=== PATIENT | female | born 1965 | race Caucasian/White ===

== ENCOUNTER → 2019-01-22 | Outpatient (CLI) | payer MEDICARE ==
--- NOTE | 2019-01-22 14:10 | Diagnostic Imaging Report ---
INDICATION: Left wrist pain. COMPARISON: None. FINDINGS: Three views of the left wrist demonstrate no acute fracture or dislocation. There are no focal osseous lesions. No avascular necrosis is seen. The visualized soft tissue structures are unremarkable. The pronator fat pad is not displaced. There are no radio opaque foreign bodies. IMPRESSION: 1. No acute fracture or dislocation in the left wrist. Dictated by: Dictated on workstation # [id number]
== END ==
LOC: RAD FS 13:37
PROVIDERS: ATTEND Physician Assistant
DX: M25.532 Pain in left wrist (principal)
CPT/HCPCS: 73110

== ENCOUNTER → 2019-11-03 | Outpatient (CLI) | payer MEDICARE ==
--- NOTE | 2019-11-03 11:09 | Diagnostic Imaging Report ---
INDICATION: COPD. FINDINGS: The lungs are clear. The heart and vessels are normal. No failure, effusion, or pneumothorax. IMPRESSION: Negative. Dictated by: Dictated on workstation # [id number]
[2019-11-03 11:32] LABS: ALANINE AMINOTRANSFERASE 17 U/L (0-55); ALBUMIN 4.3 GM/DL (3.2-4.5); ALKALINE PHOSPHATASE 85 U/L (40-136); BILIRUBIN,TOTAL 0.3 MG/DL (0.1-1.0); BUN/CREATININE RATIO 26; CALCIUM 9.9 MG/DL (8.5-10.1); CARBON DIOXIDE 26 MMOL/L (21-32); CHLORIDE 104 MMOL/L (98-107); GFR ESTIMATED > 60; GLUCOSE 96 MG/DL (70-105); POTASSIUM 4.8 MMOL/L (3.6-5.0); SODIUM 140 MMOL/L (135-145); TOTAL PROTEIN 7.6 GM/DL (6.4-8.2)
== END ==
LOC: RAD FS 10:45
PROVIDERS: ATTEND Nurse Practitioner
DX: J44.9 Chronic obstructive pulmonary disease, unspecified (principal); F41.1 Generalized anxiety disorder; E03.9 Hypothyroidism, unspecified
CPT/HCPCS: 36415; 71046; 80053; 84443; 85379

== ENCOUNTER → 2020-02-23 | Outpatient (CLI) | payer MEDICARE ==
--- NOTE | 2020-02-23 13:47 | Diagnostic Imaging Report ---
INDICATION: Atherosclerosis, claudication. FINDINGS: The right ankle-brachial index is 0.96 and the left 0.83. IMPRESSION: Mildly diminished greater left ankle brachial indices. In light of this abnormal screening study and the provided history of claudication, consider formal bilateral lower extremity arterial Dopplers as further evaluation to see if a focal stenosis is present at any level. Dictated by: Dictated on workstation # [id number]
== END ==
LOC: RAD 12:47
PROVIDERS: ATTEND Nurse Practitioner
DX: M79.604 Pain in right leg (principal); M79.605 Pain in left leg
CPT/HCPCS: 93922

== ENCOUNTER → 2021-02-07 | Outpatient (CLI) | payer MEDICARE ==
--- NOTE | 2021-02-07 14:13 | Diagnostic Imaging Report ---
EXAMINATION: CT Chest without contrast (lung screening). TECHNIQUE: Multiple contiguous axial images were obtained through the chest without the use of intravenous contrast according to lung cancer screening protocol. All CT scans use one or more of the following dose optimizing techniques: automated exposure control, MA and/or KvP adjustment based on a patient size and exam type, or iterative reconstruction. HISTORY: 96-avmk-ipyh history of smoking. COMPARISON: None available. FINDINGS: Thyroid: The thyroid is normal. Mediastinum: Heart size is normal without significant pericardial effusion. Calcifications of the aorta and coronary vessels. Thoracic aorta is normal in caliber. No suspicious lymphadenopathy. Lungs and airways: There are background emphysematous changes of the lungs. There are mild groundglass opacities within the medial upper lobes. No pleural effusion or pneumothorax. There are scattered areas of linear atelectasis or scarring. There is atelectasis within the lung bases. There are a few small scattered calcified granulomas. No suspicious pulmonary nodule. The airways are normal. Upper abdomen: The subphrenic structures are normal. Musculoskeletal: No suspicious osseous lesion or compression fracture. IMPRESSION: 1. No suspicious pulmonary nodules. Recommend continued annual low-dose CT screening. 2. COPD. LUNG-RADS CATEGORY: 1 MODIFIER: S Dictated by: Dictated on workstation # [id number]
--- NOTE | 2021-02-07 15:50 | Diagnostic Imaging Report ---
INDICATION: Postmenopausal screening. COMPARISON: None. FINDINGS: AP Spine L1-L4: [BMD (g/cm2): na] [T-Score: na] [Z-Score: na] [BMD Previous: na] [BMD % Change: na] LT Hip Neck: [BMD (g/cm2): 0.908] [T-Score: -0.9] [Z-Score: -0.1] LT Hip Total: [BMD (g/cm2):0.988] [T-Score:-0.2] [Z-Score: 0.4] [BMD Previous: na] [BMD % Change: na] RT Hip Neck: [BMD (g/cm2):0.821] [T-Score:-1.6] [Z-Score:-0.7] RT Hip Total: [BMD (g/cm2):0.947] [T-score:-0.5] [Z-Score:0.0] [BMD Previous:na] [BMD % Change:na] *Indicates significant change from prior examination based on 95% confidence level. World Health Organization criteria for BMD interpretation classify patients as Normal (T-score at or above -1.0), Osteopenic (T-score between -1.0 and -2.5) or Osteoporotic (T-score at or below -2.5). LIMITATIONS AND MODIFICATION: None. FRACTURE RISK (FRAX SCORE): The ten year probability of (%): Major Osteoporotic Fracture: [7.3] Hip Fracture: [1.0] IMPRESSION: 1. Osteopenia (Low bone mass). 2. Baseline examination. 3. See below National Osteoporosis Foundation guidelines on when to potentially initiate pharmacologic therapy. Based on the National Osteoporosis Foundation Guidelines, pharmacologic treatment should be initiated in any of the following, unless clinical conditions suggest otherwise: * Any patient with prior fragility fracture of the hip or vertebrae. A spine fracture indicates 5X risk for subsequent spine fracture and 2X risk for subsequent hip fracture. * Osteoporosis (T-score <-2.5). * Postmenopausal women and men age 50 and older with low bone mass/osteopenia (T-score between -1.0 and -2.5) by DXA and 10-year major osteoporotic fracture greater than 20% or a 10-year probability of hip fracture greater than 3%. These fracture risks are supplied above in the FRAX score, if applicable. * Clinician judgement and/or patient preferences may indicate treatment for people with 10-year fracture probabilities above or below these levels. Dictated by: Dictated on workstation # [id number]
== END ==
LOC: RAD 13:00
PROVIDERS: ATTEND Nurse Practitioner
DX: Z00.00 Encounter for general adult medical examination without abnormal findings (principal); J44.9 Chronic obstructive pulmonary disease, unspecified; M85.80 Other specified disorders of bone density and structure, unspecified site; Z78.0 Asymptomatic menopausal state; F17.210 Nicotine dependence, cigarettes, uncomplicated
CPT/HCPCS: 71271; 77080

== ENCOUNTER 2021-08-30 16:56 | Emergency (ER) | payer MEDICARE ==
[~2021-08-30] VITALS: Ht 162 cm; Wt 72.0 kg
--- NOTE | 2021-08-30 17:20 | ED Cardiac General ---
History of Present Illness General Chief Complaint: Chest Pain Stated Complaint: L ARM PAIN Nursing Triage Note: PT AMB TO ROOM 6 PT CO OF L HAND AND ARM PAIN FOR 3-4 DAYS SENT TO ED BY DR VALVERDE'S OFFICE FOR POSSIBLE HEART ATTACK. PT STATES LAST IL WAS SIMILAR TO THIS. DENIES SOA OR C/P AT THIS X Source: patient Exam Limitations: no limitations History of Present Illness Date Seen by Provider: Aug 30, 2021 Time Seen by Provider: 16:48 Initial Comments 56-year-old female with past medical history of hypertension, hyperlipidemia, hypothyroidism, COPD, CAD with stenting on Plavix coming in due to left hand and forearm pain. She says it has been constant and ongoing for 4 days, and is a throbbing pain. Nothing seems to make it better or worse. She says the last time this happened a couple years ago she eventually ended up with a stent. She says initially she was told she had arthritis. She went to the CT scanner, was given IV contrast, and afterwards could not breathe and her blood pressure went down. She says they did a cath shortly after that and she says that was when she had her heart attack. She says she has not been feeling lightheaded like that time, not feeling short of breath, vitals have been normal for her, and she is not having any chest pain. Denies any previous history of blood clots, leg swelling, recent surgery, recent travel, or hormonal use. ASA po OCCUPATIONAL HEALTH RN: No Allergies and Home Medications Allergies Coded Allergies: Penicillins (Verified Allergy, Unknown, 08/30/21) Sulfa (Sulfonamide Antibiotics) (Verified Allergy, Unknown, 08/30/21) Patient Home Medication List Home Medication List Reviewed: Yes Review of Systems Review of Systems Constitutional: No chills, No fever EENTM: No Blurred Vision Respiratory: Denies Cough, Denies Shortness of Air Cardiovascular: Denies Chest Pain, Denies Irregular Heart Rate, Denies Light headedness, Denies Palpitations, Denies Syncope Gastrointestinal: Denies Abdominal Pain, Denies Diarrhea, Denies Nausea, Denies Vomiting Genitourinary: Denies Burning Musculoskeletal: joint pain Skin: no symptoms reported Psychiatric/Neurological: No Symptoms Reported Endocrine: No Symptoms Reported Hematologic/Lymphatic: No Symptoms Reported All Other Systems Reviewed Negative Unless Noted: Yes Past Klrlwqx-Reujsj-Vxfzhu Hx Patient Social History Tobacco Use?: Yes Tobacco type used: Cigarettes Smoking Status: Current Everyday Smoker Substance use?: No Alcohol Use?: No Pt feels they are or have been: No Immunizations Up To Date Second COVID19 Vaccination Amilcar: DALE COVID19 Vaccine Yarn Skeins Examiner: MODERNTello Past Medical History Surgeries: Yes Orthopedic (Back surgery) Physical Exam Vital Signs Vital Signs - First Documented 08/30/21 16:57 Temp 36.2 Pulse 60 Resp 18 B/P (MAP) 144/71 (95) Pulse Ox 96 Capillary Refill : Less Than 3 Seconds Height, Weight, BMI Height: '" Weight: lbs. oz. kg; 27.00 BMI Method: General Appearance: No Apparent Distress, WD/WN HEENT: PERRL/EOMI, Normal ENT Inspection, Pharynx Normal Neck: Full Range of Motion, Normal Inspection, Non Tender, Supple Respiratory: Chest Non Tender, Lungs Clear, Normal Breath Sounds, No Accessory Muscle Use Cardiovascular: Regular Rate, Rhythm, No Edema, Normal Peripheral Pulses Gastrointestinal: Normal Bowel Sounds, Non Tender, Soft; No Distended, No Guarding Extremity: Normal Capillary Refill, Normal Inspection, Normal Range of Motion, No Calf Tenderness, No Pedal Edema, Other (Tender to palpation along the left forearm that recreates her pain without any swelling or redness, normal distal pulses and sensation, normal testing of the radial/median/ulnar nerves) Neurologic/Psychiatric: Alert, No Motor/Sensory Deficits, Normal Mood/Affect Skin: Normal Color, Warm/Dry Lymphatic: No Adenopathy Progress/Results/Core Measures Results/Orders Lab Results Laboratory Tests Test 08/30/21 17:24 Range/Units White Blood Count 10.5 4.3-11.0 10^3/uL Red Blood Count 5.04 3.80-5.11 10^6/uL Hemoglobin 15.5 11.5-16.0 g/dL Hematocrit 45 35-52 % Mean Corpuscular Volume 89 80-99 fL Mean Corpuscular Hemoglobin 31 25-34 pg Mean Corpuscular Hemoglobin Concent 35 32-36 g/dL Red Cell Distribution Width 13.6 10.0-14.5 % Platelet Count 283 130-400 10^3/uL Mean Platelet Volume 9.1 9.0-12.2 fL Immature Granulocyte % (Auto) 0 % Neutrophils (%) (Auto) 58 42-75 % Lymphocytes (%) (Auto) 35 12-44 % Monocytes (%) (Auto) 5 0-12 % Eosinophils (%) (Auto) 1 0-10 % Basophils (%) (Auto) 1 0-10 % Neutrophils # (Auto) 6.0 1.8-7.8 10^3/uL Lymphocytes # (Auto) 3.7 1.0-4.0 10^3/uL Monocytes # (Auto) 0.6 0.0-1.0 10^3/uL Eosinophils # (Auto) 0.1 0.0-0.3 10^3/uL Basophils # (Auto) 0.1 0.0-0.1 10^3/uL Immature Granulocyte # (Auto) 0.0 0.0-0.1 10^3/uL Sodium Level 137 135-145 MMOL/L Potassium Level 3.9 3.6-5.0 MMOL/L Chloride Level 102 98-107 MMOL/L Carbon Dioxide Level 25 21-32 MMOL/L Anion Gap 10 5-14 MMOL/L Blood Urea Nitrogen 9 7-18 MG/DL Creatinine 0.83 0.60-1.30 MG/DL Estimat Glomerular Filtration Rate 71 BUN/Creatinine Ratio 11 Glucose Level 84 70-105 MG/DL Calcium Level 9.3 8.5-10.1 MG/DL Corrected Calcium 9.1 8.5-10.1 MG/DL Total Bilirubin 0.3 0.1-1.0 MG/DL Aspartate Amino Transf (AST/SGOT) 19 5-34 U/L Alanine Aminotransferase (ALT/SGPT) 15 0-55 U/L Alkaline Phosphatase 80 40-136 U/L Troponin I < 0.028 <0.028 NG/ML Total Protein 7.7 6.4-8.2 GM/DL Albumin 4.2 3.2-4.5 GM/DL My Orders Orders - ALEISHA DERAS MD Cbc With Automated Diff (08/30/21 17:22) Chest 1 View, Ap/Pa Only (08/30/21 17:22) Ekg Tracing (08/30/21 17:22) Comprehensive Metabolic Panel (08/30/21 17:22) O2 (08/30/21 17:22) Monitor-Rhythm Ecg Trace Only (08/30/21 17:22) Ed Iv/Invasive Line Start (08/30/21 17:22) Troponin I (08/30/21 17:22) Aspirin Chewable Tablet (Baby Aspirin Ch (08/30/21 17:30) Aspirin Chewable Tablet (Baby Aspirin Ch (08/30/21 17:47) Medications Given in ED Current Medications Medications Dose Ordered Sig/Carlos Route Start Time Stop Time Status Last Admin Dose Admin Aspirin 324 mg ONCE ONCE PO 08/30/21 17:30 08/30/21 17:31 DC 08/30/21 17:46 324 MG Vital Signs/I&O 08/30/21 16:57 Temp 36.2 Pulse 60 Resp 18 B/P (MAP) 144/71 (95) Pulse Ox 96 Blood Pressure Mean: 95 Progress Progress Note : Progress Note 56-year-old female with above history coming in due to left forearm pain. ABCs were intact and vitals were stable on presentation. On physical exam she is tender to palpation in her left forearm particularly more on the volar side which she says recreates her pain exactly. Pain is all distal to the elbow. She would be an unusual exam if it was cardiac in nature, however she is adamant that she had similar symptoms 2 years ago. EKG ordered without any ST changes. We will go ahead and get labs including a single troponin. If she has had constant pain for 4 days, a single troponin should be sufficient if this was indeed ACS. Her story of her prior IL sounds more like anaphylaxis to IV contrast, as she says she became hypotensive immediately after the CT scan. It is difficult to fully know however, because this was all at a different hospital. Labs were significant for an undetectable troponin, and normal basic labs otherwise. Chest x-ray is clear. EKG without ischemic changes. Overall this truly seems musculoskeletal in nature to me. If she is truly concerned I do recommend she follow back up with her lemon grower within the next couple of days. She was then discharged home in stable condition with strict return precautions. Initial ECG Impression Date: Aug 30, 2021 Initial ECG Impression Time: 17:01 Initial ECG Rate: 57 Initial ECG Rhythm: Normal Sinus Comment Narrow QRS, normal axis, no significant ST changes, T wave inversions in leads V1 and V2 which is nonspecific Diagnostic Imaging Diagonstic Imaging: Xray Plain Films/CT/US/NM/MRI: chest Comments [facility] [place], [place] NAME: NEGAR TINEO [facility] REC#: [id number] PT STATUS: REG ER : 1965 PHYSICIAN: ALEISHA DERAS MD ADMIT DATE: 08/30/21/ER Signed Date of Exam:08/30/21 CHEST 1 VIEW, AP/PA ONLY EXAMINATION: Chest 1 view HISTORY: Chest pain COMPARISON: None available. FINDINGS: The lungs are clear without edema or pneumonia. No pleural effusion or pneumothorax. Heart size is normal. IMPRESSION: 1. Clear lungs. Dictated by: Dictated on workstation # [id number] Dict: 08/30/211736 Trans: 08/30/211736 [facility] [id number] Interpreted by: MCKENZIE MCDONNELL MD Electronically signed by: MCKENZIE MCDONNELL MD 08/30/211736 Departure Impression Primary Impression: Forearm pain Qualified Codes: M79.632 - Pain in left forearm Disposition: HOME, SELF-CARE Condition: Stable Departure-Patient Inst. Decision time for Depature: 17:53 Referrals: [facility] ([place]P/Family) Primary Care Physician Patient Instructions: Angina (DC) Add. Discharge Instructions: Department for your left forearm pain. When I squeeze her forearm it did recreate your pain which points to more of a musculoskeletal cause of your pain. Fortunately, the markers in your blood were negative for any obvious heart attack. Your EKG also looks getting your chest x-ray is clear. I do recommend you follow-up with your lemon grower within the next couple of days, as you stated to me that you have not followed up for the past year or so. If you have any concerns or worsening of symptoms then please come back to the ER. ALEISHA DERAS MD Aug 30, 2021 17:20
[2021-08-30] MEDS ORDERED: ASPIRIN 81 MG CHEW (CHILDREN'S ASA) PO ONE (17:30)
--- NOTE | 2021-08-30 17:38 | Diagnostic Imaging Report ---
EXAMINATION: Chest 1 view HISTORY: Chest pain COMPARISON: None available. FINDINGS: The lungs are clear without edema or pneumonia. No pleural effusion or pneumothorax. Heart size is normal. IMPRESSION: 1. Clear lungs. Dictated by: Dictated on workstation # [id number]
[2021-08-30 17:44] LABS: ALBUMIN 4.2 GM/DL (3.2-4.5); BILIRUBIN,TOTAL 0.3 MG/DL (0.1-1.0); CALCIUM 9.3 MG/DL (8.5-10.1); CREATININE SERUM 0.83 MG/DL (0.60-1.30); POTASSIUM 3.9 MMOL/L (3.6-5.0); TOTAL PROTEIN 7.7 GM/DL (6.4-8.2)
[2021-08-30 17:45] LABS: BASOPHILS # (AUTO) 0.1 10^3/uL (0.0-0.1); BASOPHILS % (AUTO) 1 % (0-10); EOSINOPHILS # (AUTO) 0.1 10^3/uL (0.0-0.3); EOSINOPHILS % (AUTO) 1 % (0-10); HEMATOCRIT 45 % (35-52); HEMOGLOBIN 15.5 g/dL (11.5-16.0); LYMPHOCYTES # (AUTO) 3.7 10^3/uL (1.0-4.0); LYMPHOCYTES % (AUTO) 35 % (12-44); MEAN CORPUSCULAR HEMOGLOBIN 31 pg (25-34); MEAN CORPUSCULAR HGB CONC 35 g/dL (32-36); MEAN CORPUSCULAR VOLUME 89 fL (80-99); MEAN PLATELET VOLUME 9.1 fL (9.0-12.2); MONOCYTES # (AUTO) 0.6 10^3/uL (0.0-1.0); MONOCYTES % (AUTO) 5 % (0-12); NEUTROPHILS % (AUTO) 58 % (42-75); PLATELET COUNT 283 10^3/uL (130-400); WHITE BLOOD COUNT 10.5 10^3/uL (4.3-11.0)
[2021-08-30] MEDS ORDERED: ASPIRIN 81 MG CHEW (CHILDREN'S ASA) ONE (17:47)
[2021-08-30 18:02] VITALS: BP 111/64
== END 2021-08-30 18:10 | disposition home or self-care (01) ==
LOC: EDUNIT# 16:56 → ER 16:58
DX: M79.632 Pain in left forearm (principal); I10 Essential (primary) hypertension; I25.2 Old myocardial infarction; F17.210 Nicotine dependence, cigarettes, uncomplicated
CPT/HCPCS: 36415; 71045; 80053; 84484; 85025; 93005; 93041

== ENCOUNTER 2021-10-16 17:40 | Inpatient (IN) | payer MEDICARE, OTHER ==
[~2021-10-16] VITALS: Ht 162 cm; Wt 72.6 kg
--- NOTE | 2021-10-16 18:01 | ED Abdominal Pain ---
General Chief Complaint: Abdominal/GI Problems Stated Complaint: ABD PAIN Source of Information: Patient Exam Limitations: No Limitations History of Present Illness Date Seen by Provider: Oct 16, 2021 Time Seen by Provider: 17:45 Initial Comments 56yoF with PMH of CAD with stenting and COPD coming in due to lower abdominal pain with n/v that was nb/nb. Last ate last night and vomited this morning. No fever. No diarrhea. Last BM this AM. Allergies and Home Medications Allergies Coded Allergies: Penicillins (Verified Allergy, Unknown, 08/30/21) Sulfa (Sulfonamide Antibiotics) (Verified Allergy, Unknown, 08/30/21) Patient Home Medication List Home Medication List Reviewed: Yes Review of Systems Review of Systems Constitutional: No chills, No fever EENTM: No Blurred Vision Respiratory: Denies Cough Cardiovascular: Denies Chest Pain Gastrointestinal: Abdominal Pain, Nausea, Vomiting Genitourinary: No Symptoms Reported Musculoskeletal: no symptoms reported Skin: no symptoms reported Psychiatric/Neurological: No Symptoms Reported Endocrine: No Symptoms Reported Hematologic/Lymphatic: No Symptoms Reported All Other Systems Reviewed Negative Unless Noted: Yes Past Xabbnpo-Emejdu-Kdlnfk Hx Patient Social History Tobacco Use?: Yes Immunizations Up To Date Second COVID19 Vaccination Amilcar: MODERNA Past Medical History Surgeries: Yes Hysterectomy, Orthopedic Physical Exam Vital Signs Vital Signs - First Documented 10/16/21 18:16 Temp 36.8 Pulse 104 Resp 24 B/P (MAP) 139/121 (127) O2 Delivery Room Air Capillary Refill : Height/Weight/BMI Height: '" Weight: lbs. oz. kg; 27.00 BMI Method: General Appearance: WD/WN, mild distress HEENT: PERRL/EOMI, normal ENT inspection, pharynx normal Neck: non-tender, full range of motion, supple, normal inspection Respiratory: chest non-tender, lungs clear, normal breath sounds, no respiratory distress Cardiovascular: regular rate, rhythm, no edema, no murmur Gastrointestinal: normal bowel sounds, soft; No distended, No guarding, No rebound; tenderness Extremities: normal range of motion, non-tender, normal inspection, no pedal edema, no calf tenderness, normal capillary refill Back: normal inspection, no CVA tenderness Neurologic/Psychiatric: no motor/sensory deficits, alert, normal mood/affect Skin: normal color, warm/dry Lymphatic: no adenopathy Focused Exam Lactate Level 12/20/21 17:50: Lactic Acid Level 2.01*H Lactic Acid Level Laboratory Tests Test 10/16/21 17:50 Lactic Acid Level 2.01 MMOL/L (0.50-2.00) *H Progress/Results/Core Measures Results/Orders Lab Results Laboratory Tests Test 10/16/21 17:47 10/16/21 17:50 Range/Units Urine Color YELLOW Urine Clarity CLOUDY Urine pH 8.5 5-9 Urine Specific [place] 1.015 L 1.016-1.022 Urine Protein 1+ H NEGATIVE Urine Glucose (UA) NEGATIVE NEGATIVE Urine Ketones 3+ H NEGATIVE Urine Nitrite NEGATIVE NEGATIVE Urine Bilirubin 1+ H NEGATIVE Urine Urobilinogen 1.0 < = 1.0 MG/DL Urine Leukocyte Esterase 1+ H NEGATIVE Urine RBC (Auto) TRACE-L H NEGATIVE Urine RBC 0-2 /HPF Urine WBC 2-5 /HPF Urine Squamous Epithelial Cells 2-5 /HPF Urine Crystals NONE /LPF Urine Bacteria FEW H /HPF Urine Casts NONE /LPF Urine Mucus LARGE H /LPF Urine Other CLUE CELLS NOTED /HPF Urine Culture Indicated NO White Blood Count 15.5 H 4.3-11.0 10^3/uL Red Blood Count 5.74 H 3.80-5.11 10^6/uL Hemoglobin 17.4 H 11.5-16.0 g/dL Hematocrit 49 35-52 % Mean Corpuscular Volume 86 80-99 fL Mean Corpuscular Hemoglobin 30 25-34 pg Mean Corpuscular Hemoglobin Concent 35 32-36 g/dL Red Cell Distribution Width 13.5 10.0-14.5 % Platelet Count 268 130-400 10^3/uL Mean Platelet Volume 9.4 9.0-12.2 fL Immature Granulocyte % (Auto) 0 % Neutrophils (%) (Auto) 80 H 42-75 % Lymphocytes (%) (Auto) 16 12-44 % Monocytes (%) (Auto) 3 0-12 % Eosinophils (%) (Auto) 0 0-10 % Basophils (%) (Auto) 0 0-10 % Neutrophils # (Auto) 12.4 H 1.8-7.8 X 10^3 Lymphocytes # (Auto) 2.5 1.0-4.0 X 10^3 Monocytes # (Auto) 0.5 0.0-1.0 X 10^3 Eosinophils # (Auto) 0.0 0.0-0.3 10^3/uL Basophils # (Auto) 0.0 0.0-0.1 10^3/uL Immature Granulocyte # (Auto) 0.1 0.0-0.1 10^3/uL Prothrombin Time 12.5 12.2-14.7 SEC INR Comment 0.9 0.8-1.4 Activated Partial Thromboplast Time 30 24-35 SEC Sodium Level 135 135-145 MMOL/L Potassium Level 4.0 3.6-5.0 MMOL/L Chloride Level 99 98-107 MMOL/L Carbon Dioxide Level 19 L 21-32 MMOL/L Anion Gap 17 H 5-14 MMOL/L Blood Urea Nitrogen 18 7-18 MG/DL Creatinine 0.77 0.60-1.30 MG/DL Estimat Glomerular Filtration Rate 77 BUN/Creatinine Ratio 23 Glucose Level 148 H 70-105 MG/DL Lactic Acid Level 2.01 *H 0.50-2.00 MMOL/L Calcium Level 10.3 H 8.5-10.1 MG/DL Corrected Calcium 8.5-10.1 MG/DL Total Bilirubin 0.5 0.1-1.0 MG/DL Aspartate Amino Transf (AST/SGOT) 20 5-34 U/L Alanine Aminotransferase (ALT/SGPT) 15 0-55 U/L Alkaline Phosphatase 83 40-136 U/L Total Protein 8.6 H 6.4-8.2 GM/DL Albumin 4.8 H 3.2-4.5 GM/DL Lipase 21 8-78 U/L My Orders Orders - ALEISHA DERAS MD Ct Abdomen/Pelvis W (10/16/21 18:03) Cbc With Automated Diff (10/16/21 18:03) Comprehensive Metabolic Panel (10/16/21 18:03) Lactic Acid Analyzer (10/16/21 18:03) Lipase (10/16/21 18:03) Protime With Inr (10/16/21 18:03) Partial Thromboplastin Time (10/16/21 18:03) Ua Culture If Indicated (10/16/21 18:03) Ondansetron Injection (Zofran Injectio (10/16/21 18:15) Lactated Ringers (Lr 1000 Ml Iv Solution (10/16/21 18:03) Morphine Injection (Morphine Injection (10/16/21 18:03) Iohexol Injection (Omnipaque 350 Mg/Ml 1 (10/16/21 18:15) Ns (Ivpb) (Sodium Chloride 0.9% Ivpb Bag (10/16/21 18:15) Received Contrast (Hold Metformin- Contr (10/16/21 18:15) Manual Differential (10/16/21 17:50) Medications Given in ED Current Medications Medications Dose Ordered Sig/Carlos Route Start Time Stop Time Status Last Admin Dose Admin Iohexol 100 ml ONCE ONCE IV 10/16/21 18:15 10/16/21 18:16 DC 10/16/21 18:38 100 ML Ondansetron HCl 4 mg ONCE ONCE IVP 10/16/21 18:15 10/16/21 18:16 DC 10/16/21 18:12 4 MG Sodium Chloride 100 ml ONCE ONCE IV 10/16/21 18:15 10/16/21 18:16 DC 10/16/21 18:38 100 ML Vital Signs/I&O 10/16/21 18:16 Temp 36.8 Pulse 104 Resp 24 B/P (MAP) 139/121 (127) O2 Delivery Room Air Progress Progress Note : Progress Note 56-year-old female with above history coming in due to abdominal pain and vomiting. ABCs were intact and vitals were stable on presentation although she was in significant pain. An IV was placed and she was given a bolus of IV fluids as well as morphine for pain and Zofran for her nausea. Basic labs significant for lactate 2.01, slightly elevated white blood cell count, normal kidney function. CT concerning for small bowel obstruction. I contacted Dr. Mack the surgeon on-call around 7 PM and he will see the patient. We will place an NG tube and start her on maintenance fluids. I then contacted Dr. Merino who admit the patient to her service for further evaluation and management. Diagnostic Imaging Diagonstic Imaging: CT (abdomen/pelvis) Comments [facility]. [place], [place] NAME: NEGAR TINEO [facility] REC#: [id number] PT STATUS: REG ER : 1965 PHYSICIAN: ALEISHA DERAS MD ADMIT DATE: 10/16/21/ER FS Draft Date of Exam:10/16/21 CT ABDOMEN/PELVIS W PROCEDURE: CT abdomen and pelvis with contrast. TECHNIQUE: Multiple contiguous axial images were obtained through the abdomen and pelvis after administration of intravenous contrast. Auto Exposure Controls were utilized during the CT exam to meet ALARA standards for radiation dose reduction. All CT scans use one or more of the following dose optimizing techniques: automated exposure control, MA and/or KvP adjustment based on patient size and exam type or iterative reconstruction. INDICATION: Left lower quadrant pain x1 day. FINDINGS: The lung bases are clear. The liver appears normal. The gallbladder is present. The spleen appears normal. Pancreas appears normal. Kidneys and adrenals appear normal. There are moderately distended fluid-filled small bowel loops. There appears be a transitional zone in the mid to proximal ileum just anterior to the superior mesenteric artery below the level of the transverse portion of the duodenum. This is image 39 of 81 in the axial series and 49 of 144 on the coronal images. There is aortic atherosclerosis. The colon is decompressed. There is no evidence for appendicitis. Urinary bladder is decompressed. There is no intraperitoneal free air or free fluid. IMPRESSION: 1. Mid small bowel obstruction. Dictated on workstation # [id number] Dict: 10/16/21 1841 Trans: 10/16/21 1850 [facility] [id number] Interpreted by: TINO ONOFRE MD Electronically signed by: Departure Impression Primary Impression: SBO (small bowel obstruction) Disposition: 30 STILL A PATIENT Condition: Stable Admissions Decision to Admit Reason: Admit from ER (General) Decision to Admit/Date: Oct 16, 2021 Time/Decision to Admit Time: 19:00 Transfer Method of Transfer: EMS Departure-Patient Inst. Referrals: ABHAY HANSEN APRN (PCP/Family) Primary Care Physician ALEISHA DERAS MD Oct 16, 2021 18:01
[2021-10-16] MEDS ORDERED: LACTATED RINGERS 1,000 ML IV STA (18:03)
[2021-10-16] MEDS ORDERED: morphine INJ 10 MG/ML 1ML (SYR OR VIAL) IVP STA (18:03)
[2021-10-16] MEDS ORDERED: IOHEXOL 350 MG/ML 100 ML (OMNIPAQUE 350) VIAL IV ONE (18:15)
[2021-10-16] MEDS ORDERED: ONDANSETRON 4 MG/2 ML (SDV) Z0FRAN IVP ONE (18:15)
[2021-10-16] MEDS ORDERED: HOLD METFORMIN - RECEIVED CONTRAST 20 ML VIAL IV SCH (18:15)
[2021-10-16] MEDS ORDERED: NS 100 ML (IVPB) BAG IV ONE (18:15)
[2021-10-16 18:16] LABS: COLOR,URINE YELLOW; GLUCOSE, URINE (UA) NEGATIVE (NEGATIVE); KETONES,URINE 3+ (NEGATIVE); LEUKOCYTE ESTERASE ,URINE 1+ (NEGATIVE); NITRITE,URINE NEGATIVE (NEGATIVE); PH,URINE 8.5 (5-9); PROTEIN,URINE 1+ (NEGATIVE)
[2021-10-16 18:18] LABS: INR 0.9 (0.8-1.4); PROTHROMBIN TIME PATIENT 12.5 SEC (12.2-14.7)
[2021-10-16 18:31] LABS: HEMATOCRIT 49 % (35-52); HEMOGLOBIN 17.4 g/dL (11.5-16.0); MEAN CORPUSCULAR HEMOGLOBIN 30 pg (25-34); MEAN CORPUSCULAR HGB CONC 35 g/dL (32-36); MEAN CORPUSCULAR VOLUME 86 fL (80-99); MEAN PLATELET VOLUME 9.4 fL (9.0-12.2); PLATELET COUNT 268 10^3/uL (130-400); WHITE BLOOD COUNT 15.5 10^3/uL (4.3-11.0)
[2021-10-16 18:32] LABS: BASOPHILS % (AUTO) 0 % (0-10); EOSINOPHILS % (AUTO) 0 % (0-10); LYMPHOCYTES # (AUTO) 2.5 X 10^3 (1.0-4.0); LYMPHOCYTES % (AUTO) 16 % (12-44); MONOCYTES # (AUTO) 0.5 X 10^3 (0.0-1.0); MONOCYTES % (AUTO) 3 % (0-12); NEUTROPHILS # (AUTO) 12.4 X 10^3 (1.8-7.8); NEUTROPHILS % (AUTO) 80 % (42-75)
[2021-10-16 18:38] LABS: ALKALINE PHOSPHATASE 83 U/L (40-136); BILIRUBIN,TOTAL 0.5 MG/DL (0.1-1.0); BUN/CREATININE RATIO 23; CALCIUM 10.3 MG/DL (8.5-10.1); CARBON DIOXIDE 19 MMOL/L (21-32); CHLORIDE 99 MMOL/L (98-107); CREATININE SERUM 0.77 MG/DL (0.60-1.30); GFR ESTIMATED 77; GLUCOSE 148 MG/DL (70-105); SODIUM 135 MMOL/L (135-145)
[2021-10-16 18:39] LABS: ALANINE AMINOTRANSFERASE 15 U/L (0-55); ALBUMIN 4.8 GM/DL (3.2-4.5); LIPASE 21 U/L (8-78); TOTAL PROTEIN 8.6 GM/DL (6.4-8.2)
[2021-10-16 18:42] LABS: BACTERIA,URINE FEW /HPF; BILIRUBIN,URINE 1+ (NEGATIVE); RBC,URINE 0-2 /HPF
[2021-10-16 18:43] LABS: URINE OTHER CLUE CELLS NOTED /HPF
[2021-10-16 18:44] LABS: CLARITY,URINE CLOUDY
--- NOTE | 2021-10-16 18:52 | Diagnostic Imaging Report ---
PROCEDURE: CT abdomen and pelvis with contrast. TECHNIQUE: Multiple contiguous axial images were obtained through the abdomen and pelvis after administration of intravenous contrast. Auto Exposure Controls were utilized during the CT exam to meet ALARA standards for radiation dose reduction. All CT scans use one or more of the following dose optimizing techniques: automated exposure control, MA and/or KvP adjustment based on patient size and exam type or iterative reconstruction. INDICATION: Left lower quadrant pain x1 day. FINDINGS: The lung bases are clear. The liver appears normal. The gallbladder is present. The spleen appears normal. Pancreas appears normal. Kidneys and adrenals appear normal. There are moderately distended fluid-filled small bowel loops. There appears be a transitional zone in the mid to proximal ileum just anterior to the superior mesenteric artery below the level of the transverse portion of the duodenum. This is image 39 of 81 in the axial series and 49 of 144 on the coronal images. There is aortic atherosclerosis. The colon is decompressed. There is no evidence for appendicitis. Urinary bladder is decompressed. There is no intraperitoneal free air or free fluid. IMPRESSION: 1. Mid small bowel obstruction. Dictated by: Dictated on workstation # [id number]
[2021-10-16 19:06] LABS: BAND NEUTROPHILS 6 %; BASOPHILS % (MANUAL) 1 %; LYMPHOCYTES % (MANUAL) 10 %; MONOCYTES % (MANUAL) 1 %; NEUTROPHILS % (MANUAL) 81 %
[2021-10-16 19:07] LABS: PLATELET ESTIMATE NORMAL; RBC MORPH NORMAL; REACTIVE LYMPHOCYTES 1 %; TOXIC GRANULATION/VACUOLAZATIO 3+
[2021-10-16] MEDS ORDERED: D5 LR IV SOLUTION 1,000 ML IV STA (19:08)
[2021-10-16 20:50] VITALS: BP 126/79
[2021-10-16] MEDS ORDERED: ONDANSETRON 4 MG/2 ML (SDV) Z0FRAN IVP PRN (21:00)
[2021-10-16] MEDS ORDERED: LORazepam INJ 2 MG/ML (ATIVAN) VIAL IVP PRN (21:00)
[2021-10-16] MEDS ORDERED: ACETAMINOPHEN 650 MG SUPP (TYLENOL) PR PRN (21:00)
[2021-10-16] MEDS ORDERED: PROMETHAZINE INJ 25 MG/ML (PHENERGAN) AMP IM PRN (21:00)
[2021-10-16] MEDS ORDERED: morphine INJ 10 MG/ML 1ML (SYR OR VIAL) IVP PRN (21:00)
[2021-10-16 21:51] VITALS: BP 139/121
[2021-10-16] MEDS ORDERED: RT-ALBUTEROL/IPRATROPIUM 3 ML (DUONEB) VIAL INH PRN (22:00)
[2021-10-16] MEDS: NS IV 1000 ML 1,000 ML IV SCH (22:27)
[2021-10-16] MEDS: metroNIDAZOLE 500MG/100ML IVPB 100 ML IV SCH (22:28)
[2021-10-16] MEDS: ENOXAPARIN 40 MG/0.4 ML (LOVENOX) SYR SC SCH (22:28)
[2021-10-16] MEDS: CIPROFLOXACIN IV 400MG/200ML 200 ML IV SCH (23:13)
[2021-10-16 23:45] VITALS: BP 125/77
[2021-10-17] VITALS (8 sets, daily range): BP systolic 112–155; BP diastolic 62–85
--- NOTE | 2021-10-17 00:35 | CONSULTATION REPORT ---
DATE OF SERVICE: 10/16/2021 ATTENDING CEMENT RAILROAD CAR LOADER: Jacqueline Hallman APRN. HISTORY OF PRESENT ILLNESS: The patient is a 56-year-old female with history of coronary artery disease as well as COPD, who presented to [facility] with abdominal distention as well as nausea and vomiting starting last night and also this morning. She states that she did have a bowel movement this morning. With the abdominal distention, she does also describe crampy abdominal pain. She does not report ever having these symptoms before in the past. She does not report any red blood per rectum nor any dark tarry stools. Her only abdominal surgery was a complete hysterectomy. PAST MEDICAL HISTORY: COPD, coronary artery disease. PAST SURGICAL HISTORY: Cardiac catheterization and stent placement. ALLERGIES: PENICILLIN, SULFA. MEDICATIONS: Antihypertensive. SOCIAL HISTORY: Positive smoke, negative alcohol. FAMILY HISTORY: Noncontributory. VITAL SIGNS: Temperature 36.8, blood pressure 139/121, pulse 104, respirations 24. REVIEW OF SYSTEMS: Well-nourished female currently guarded secondary to the crampy abdominal pain. She does have some nausea; however, no vomiting with associated mild abdominal distention. She states that she did have a bowel movement earlier this morning, normal form and consistency, no red blood per rectum, no dark tarry stools. No fever, chills, no recent inadvertent weight loss. All other review of systems negative. PHYSICAL EXAMINATION: CHEST: Distant breath sounds and scattered wheezes bilaterally. HEART: Regular, no murmurs. EXTREMITIES: No lower extremity edema, negative Homans sign. HEENT: No scleral icterus. NECK: No cervical lymphadenopathy. ABDOMEN: Slightly distended with a mild global tenderness upon palpation. No hernias palpable. No peritoneal signs. SKIN: Warm, dry. LABORATORY DATA: WBC 15.5, hemoglobin 17.4, hematocrit 49, platelets 268, BUN 18, creatinine 0.77. Liver function enzymes normal. Urinalysis, positive for leukocyte esterase and few bacteria. ASSESSMENT AND PLAN: A 56-year-old female with a mild small-bowel obstruction. This may be due to adhesion tissue; however, not likely due to the location of her previous surgery. This may also be due to an evolving enteritis. For now, we will proceed with conservative management with IV hydration due to significant dehydration and bowel rest. We will also proceed with serial physical examinations. We will also treat her urinary tract infection. If she does not progress and develop any significant bowel function, we will then proceed with contrast study with a Gastrografin small bowel follow through for a better delineation of the small bowel anatomy. On this admission, we will also get a gallbladder ultrasound. Based on the CT scan, there may be a stone versus sludge within the dependent portion of the gallbladder. Job ID: [id number] DocumentID: [id number] Dictated Date: 10/16/2021 20:56:29 Stake Setter Date: 10/16/2021 21:15:53 Dictated By: CARLEY MARCOS MD
[2021-10-17] MEDS: morphine INJ 4 MG/ML 1 ML (VIAL/SYRINGE) IVP PRN ×4 (03:07→19:53)
[2021-10-17 05:28] LABS: BASOPHILS # (AUTO) 0.1 10^3/uL (0.0-0.1); BASOPHILS % (AUTO) 0 % (0-10); EOSINOPHILS % (AUTO) 0 % (0-10); HEMATOCRIT 45 % (35-52); HEMOGLOBIN 15.1 g/dL (11.5-16.0); LYMPHOCYTES # (AUTO) 3.2 10^3/uL (1.0-4.0); LYMPHOCYTES % (AUTO) 23 % (12-44); MEAN CORPUSCULAR HEMOGLOBIN 30 pg (25-34); MEAN CORPUSCULAR HGB CONC 34 g/dL (32-36); MEAN CORPUSCULAR VOLUME 90 fL (80-99); MEAN PLATELET VOLUME 9.1 fL (9.0-12.2); MONOCYTES % (AUTO) 7 % (0-12); NEUTROPHILS # (AUTO) 9.8 10^3/uL (1.8-7.8); NEUTROPHILS % (AUTO) 69 % (42-75); PLATELET COUNT 216 10^3/uL (130-400); WHITE BLOOD COUNT 14.1 10^3/uL (4.3-11.0)
[2021-10-17 05:44] LABS: ALBUMIN 3.7 GM/DL (3.2-4.5)
[2021-10-17 05:45] LABS: POTASSIUM 3.9 MMOL/L (3.6-5.0)
[2021-10-17 05:46] LABS: CALCIUM 8.6 MG/DL (8.5-10.1)
[2021-10-17 05:47] LABS: TOTAL PROTEIN 6.8 GM/DL (6.4-8.2)
[2021-10-17 05:49] LABS: BILIRUBIN,TOTAL 0.4 MG/DL (0.1-1.0)
[2021-10-17 05:50] LABS: CREATININE SERUM 0.79 MG/DL (0.60-1.30)
[2021-10-17] MEDS: CIPROFLOXACIN IV 400MG/200ML 200 ML IV SCH ×2 (08:40→21:32)
[2021-10-17] MEDS: metroNIDAZOLE 500MG/100ML IVPB 100 ML IV SCH ×2 (08:40→20:08)
[2021-10-17] MEDS: NS IV 1000 ML 1,000 ML IV SCH ×2 (08:40→19:54)
--- NOTE | 2021-10-17 09:51 | Diagnostic Imaging Report ---
PROCEDURE: US Abdomen, limited. TECHNIQUE: Multiple realtime grayscale images were obtained over the abdomen in various projections. INDICATION: Nausea and vomiting. FINDINGS: Liver parenchyma appears normal. Liver measures 14 cm. The gallbladder and bile duct are normal with the common duct measuring 4 mm. Portal vein shows normal flow with Doppler sampling. The pancreas is obscured by bowel gas. Aorta measures 2.3 cm in diameter. There is no ascites. Right kidney measures 9.7 x 4.2 x 3.9 cm. There is no hydronephrosis or calculi. Negative Kothari's sign. IMPRESSION: Normal right upper quadrant ultrasound. Dictated by: Dictated on workstation # [id number]
--- NOTE | 2021-10-17 10:49 | Diagnostic Imaging Report ---
INDICATION: Abdominal distention. COMPARISON: 10/16/2021 CT scan. FINDINGS: The stomach and proximal small bowel continue to be dilated with a few air-fluid levels. There is a small amount of gas and stool within the colon to the rectum. IMPRESSION: The findings are consistent with continued partial small bowel obstruction. Dictated by: Dictated on workstation # [id number]
--- NOTE | 2021-10-17 11:16 | History & Physical-Hospitalist ---
SHAWNA HERNANDEZ 10/17/21 1116: History of Present Illness HPI/Chief Complaint Patient is a 56 year old female with a history of CAD with stent placement and COPD who was admitted from [facility] for a SBO that started yesterday evening. Patient was transferred here and seen by Dr. Mack. Patient was unable to tolerate NG tube placement. Placed on fluids and cipro/metronidazole. Morphine for pain control. Placed as NPO status. Attempting conservative treatment first. If status doesn't resolve will follow-up with a gastrograffin study. Patient has not had something like this happen before. This morning patient is having some breakthrough pain. Nausea but no vomiting. Patient has not had a bowel movement or passed flatus. Is urinating okay. Patient does smoke 1/2 PPD, but says she does not need a nicotine patch at this time. Source: patient, RN/MD Date Seen 10/17/21 Time Seen by a Provider: 08:40 Attending Physician Shelley Garcia Emily K Aprn Referring Physician Date of Admission Oct 16, 2021 at 20:45 Home Medications & Allergies Home Medications Reviewed patient Home Medication Reconciliation performed by pharmacy medication reconciliations biological science technician fish and/or nursing. Patients Allergies have been reviewed. Allergies Allergies Coded Allergies Penicillins (Verified Allergy, Unknown, 08/30/21) Sulfa (Sulfonamide Antibiotics) (Verified Allergy, Unknown, 08/30/21) Past Uafswte-Htbtiw-Euwnfl Hx Patient Social History Tobacco Use?: Yes Tobacco type used: Cigars Smoking Status: Current Everyday Smoker Use of E-Cig and/or Vaping dev: No Substance use?: No Alcohol Use?: No Pt feels they are or have been: No Immunizations Up To Date First/Initial COVID19 Vaccinat: MODERNA Second COVID19 Vaccination Amilcar: MODERNA Current Status Advance Directives: Yes Advance Directive Location: Home Communicates: Verbally Primary Language: Jordanian Preferred Spoken Language: Jordanian Is interpretation needed?: No Implanted or Applied Medical D: None Past Medical History Surgeries: Hysterectomy, Orthopedic Coronary Artery Disease, Hypertension Review of Systems Constitutional: see HPI Gastrointestinal: abdominal pain, constipation, nausea; No vomiting Genitourinary: No decreased output, No dysuria Physical Exam Physical Exam Vital Signs Vital Signs - First Documented 12/20/21 12/20/21 12/20/21 18:16 19:56 21:51 Temp 36.8 Pulse 104 Resp 24 B/P (MAP) 139/121 (127) Pulse Ox 94 O2 Delivery Room Air FiO2 21 Capillary Refill : Height, Weight, BMI Height: '" Weight: lbs. oz. kg; 27.66 BMI Method: General Appearance: WD/WN, Mild Distress Respiratory: Chest Non Tender, Lungs Clear, Normal Breath Sounds, No Accessory Muscle Use, No Respiratory Distress Cardiovascular: Regular Rate, Rhythm, Normal Peripheral Pulses Gastrointestinal: Tenderness Rectal: Deferred Neurologic/Psychiatric: Alert, Oriented x3, Normal Mood/Affect Results Results/Procedures Labs Laboratory Tests 10/16/21 17:50 10/17/21 05:17 10/17/21 05:22 Patient resulted labs reviewed. Imaging: Reviewed Imaging Report Imaging [facility] [place], [place] NAME: [facility] REC#: [id number] PT STATUS: REG ER : 1965 PHYSICIAN: ALEISHA DERAS MD ADMIT DATE: 10/16/21/ER FS Signed Date of Exam:10/16/21 CT ABDOMEN/PELVIS W PROCEDURE: CT abdomen and pelvis with contrast. TECHNIQUE: Multiple contiguous axial images were obtained through the abdomen and pelvis after administration of intravenous contrast. Auto Exposure Controls were utilized during the CT exam to meet ALARA standards for radiation dose reduction. All CT scans use one or more of the following dose optimizing techniques: automated exposure control, MA and/or KvP adjustment based on patient size and exam type or iterative reconstruction. INDICATION: Left lower quadrant pain x1 day. FINDINGS: The lung bases are clear. The liver appears normal. The gallbladder is present. The spleen appears normal. Pancreas appears normal. Kidneys and adrenals appear normal. There are moderately distended fluid-filled small bowel loops. There appears be a transitional zone in the mid to proximal ileum just anterior to the superior mesenteric artery below the level of the transverse portion of the duodenum. This is image 39 of 81 in the axial series and 49 of 144 on the coronal images. There is aortic atherosclerosis. The colon is decompressed. There is no evidence for appendicitis. Urinary bladder is decompressed. There is no intraperitoneal free air or free fluid. IMPRESSION: 1. Mid small bowel obstruction. Dictated by: Dictated on workstation # [id number] Dict: 10/16/21 1841 Trans: 10/16/211905 [facility] [id number] Interpreted by: TINO ONOFRE MD Electronically signed by: TINO ONOFRE MD 10/16/211905 Assessment/Plan Admission Diagnosis Small Bowel Obstruction Admission Status: Inpatient Order (span 2 midnights) Reason for Inpatient Admission: Small bowel obstruction Assessment and Plan Assessment Small Bowel Obstruction UTI CAD with hx of stent placement COPD Hypertension Plan Continue treatment plan per Dr. Mack NPO IV Fluids Ciprofloxacin/Metronidazole Duoneb breathing treatments Consider NG tube under sedation Continue pain management Zofran PRN Home medications Lovenox Monitor status SHELLEY GARCIA 10/18/21 0613: History of Present Illness HPI/Chief Complaint CC: Abdominal pain with small bowel obstruction HPI: This is a 56yoWF who smokes and has COPD who presents with abdominal pain found to have a small bowel obstruction. NG tube was unable to be placed and she does have a hx of heart disease and stents. She does continue to smoke. Family at the bedside not understanding why something cant be done but she was unable to tolerate the NG tube so may need conscious sedation to place so conferred with Dr. Mack. Source: patient, RN/MD Past Ukpqkvp-Zuoxcq-Fswwvj Hx Patient Social History Marrital Status: single Employed/Student: unemployed Smoking Status: Current Everyday Smoker Past Medical History COPD Coronary Artery Disease, Hypertension Review of Systems Constitutional: see HPI, weakness Gastrointestinal: abdominal pain, constipation, loss of appetite, nausea, vomiting Physical Exam Physical Exam General Appearance: No Apparent Distress, Chronically ill Neck: Full Range of Motion, Normal Inspection Respiratory: Lungs Clear, Normal Breath Sounds Cardiovascular: Regular Rate, Rhythm Gastrointestinal: Abnormal Bowel Sounds, Tenderness Neurologic/Psychiatric: Alert, Oriented x3, Depressed Affect Assessment/Plan Admission Diagnosis Assessment: Small bowel obstruction first occurrence CAD previous stents COPD Current smoker Unable to tolerate NG tube placement at bedside Plan: Dr. MACK consult EGD placement of NG tube Admission Status: Inpatient Order (span 2 midnights) Reason for Inpatient Admission: SBO Supervisory-Addendum Brief Verification & Attestation Participated in pt care: history, MDM, physical Personally performed: exam, history, MDM, supervision of care Care discussed with: Medical Student Procedures: n/a Results interpretation: Verified all documentation Verification and Attestation of Medical Student E/M Service A medical student performed and documented this service in my presence. I reviewed and verified all information documented by the medical student and made modifications to such information, when appropriate. I personally performed the physical exam and medical decision making. Shelley Garcia, Oct 18, 2021,06:10 SHAWNA HERNANDEZ Oct 17, 2021 11:16 SHELLEY GARCIA DO Oct 18, 2021 06:13
[2021-10-17] MEDS ORDERED: LEVO75TA6 PO (12:02)
[2021-10-17] MEDS ORDERED: ROSU40TA23 PO (12:02)
[2021-10-17] MEDS ORDERED: HYDR50TA76 PO (12:02)
[2021-10-17] MEDS ORDERED: CLOP75TA28 PO (12:02)
[2021-10-17] MEDS ORDERED: FLUT9.9S NSEACH (12:02)
[2021-10-17] MEDS ORDERED: METO50TA7 PO (12:02)
[2021-10-17] MEDS ORDERED: PANT40TA52 PO (12:02)
[2021-10-17] MEDS ORDERED: ESCI-2 PO (12:02)
[2021-10-17] MEDS ORDERED: ISOS30TA82 PO (12:02)
[2021-10-17] MEDS ORDERED: GABA-486 PO (12:10)
--- NOTE | 2021-10-17 13:17 | Progress Note-Pre Operative ---
Pre-Operative Progress Note H&P Reviewed The H&P was reviewed, patient examined and no changes noted. Date Seen by Provider: Oct 17, 2021 Time Seen by Provider: 13:00 Date H&P Reviewed: Oct 17, 2021 Time H&P Reviewed: 13:00 Pre-Operative Diagnosis: PSBO with nausea and vomiting CARLEY MARCOS MD Oct 17, 2021 13:17
[2021-10-17] MEDS ORDERED: LACTATED RINGERS 1,000 ML IV ONE (14:18)
[2021-10-17] MEDS ORDERED: proPOfol 200 MG/20 ML (DIPRIVAN) VIAL IV ONE (14:22)
[2021-10-17] MEDS ORDERED: MIDAZOLAM 2 MG/2 ML (VERSED) VIAL ONE (14:22)
[2021-10-17] MEDS ORDERED: HURRICAINE EXT TUBE (BENZOCAINE) ONE (14:23)
[2021-10-17] MEDS ORDERED: ESMOLOL 100 MG/10 ML (BREVIBLOC) VIAL ONE (14:33)
[2021-10-17] MEDS ORDERED: LACTATED RINGERS 1,000 ML IV STA (14:41)
[2021-10-17] MEDS ORDERED: HURRICAINE EXT TUBE (BENZOCAINE) XX PRN (14:45)
--- NOTE | 2021-10-17 14:56 | Anesthesia-General Post-Op ---
MAC Patient Condition Mental Status/LOC: Same as Preop Cardiovascular: Satisfactory Nausea/Vomiting: Absent Respiratory: Satisfactory Pain: Controlled Complications: Absent Post Op Complications Complications None Follow Up Care/Instructions Patient Instructions None needed. Anesthesiology Discharge Order Discharge Order Patient is doing well, no complaints, stable vital signs, no apparent adverse anesthesia problems. FANNY GALEANO DO Oct 17, 2021 14:56
--- NOTE | 2021-10-17 15:23 | Progress Note-Post Operative ---
Post-Operative Progess Note Surgeon (s)/Laminator Preforms (s) Surgeon CARLEY MARCOS MD Laminator Preforms: none Pre-Operative Diagnosis PSBO with nausea and vomiting Post-Operative Diagnosis reflux esophagitis(grade 2-3), no HH, moderate gastritis, no distal obstructions. Procedure & Operative Findings Date of Procedure 10/17/21 Procedure Performed/Findings EGD with guided placement nasogastric tube. Anesthesia Type mac Estimated Blood Loss Estimated blood loss (mL): minimal Specimens/Packing Specimens Removed ge jxn, antrum CARLEY MARCOS MD Oct 17, 2021 15:23
--- NOTE | 2021-10-17 19:32 | OPERATIVE REPORT ---
DATE OF SERVICE: 10/17/2021 ADMITTING PHYSICIAN: Dr. Merino. PREOPERATIVE DIAGNOSES: Partial small-bowel obstruction, inability to advance the nasogastric tube. Nausea, vomiting. POSTOPERATIVE DIAGNOSES. Partial small-bowel obstruction, inability to advance the nasogastric tube. Nausea, vomiting. PROCEDURE: EGD with directed placement of nasogastric tube. SURGEON: Carley Marcos MD. ANESTHESIA: Monitored anesthesia care. ESTIMATED BLOOD LOSS: Minimal. FINDINGS: Same as postoperative diagnoses. DISPOSITION: The patient tolerated the procedure well. INDICATIONS: The patient is a 56-year-old female who presented to [facility] with abdominal distention and nausea and vomiting. She also had reported a crampy abdominal pain. She does not report ever having these symptoms before in the past. A CT scan was performed, which did show a partial small-bowel obstruction along the more proximal portion of the small bowel. Multiple attempts at placement of a nasogastric tube were performed at [facility] as well as at [facility]; however, unsuccessful. The patient continues to have abdominal distention as well as nausea. DESCRIPTION OF PROCEDURE: The patient was brought to the endoscopy suite, laid in the left lateral decubitus position with head slightly elevated. After adequate IV pain and sedative medications and monitored anesthesia care, the mouthpiece was applied. The endoscope was placed in the mouth, visualizing the pharynx and hypopharyngeal region. Vocal cords, epiglottis and vallecula identified and appeared to be normal. The endoscope was then gently intubated. Esophageal opening and esophagus insufflated. The endoscope was then advanced to the first, second and third portion of esophagus at the level of the GE junction. A Braxton grade II to III reflux esophagitis identified. A biopsy was taken with forceps with visualization of good hemostasis. The endoscope was then advanced in the stomach and endoscope retroflexed visualizing no hiatal hernia. There was a vegetative retained food substance within the stomach as well as a mild amount of fluid; however, not copious amount and this was suctioned out. There was a moderate gastritis and a biopsy was taken of the antrum to rule out H. pylori. The endoscope was then advanced to the pylorus and the first and second portion of the duodenum, which appeared normal with no distal obstructions within this region. The nasogastric tube was placed into the stomach, verifying this with the endoscope. The endoscope was then slowly withdrawn while taking a second look and suctioning of residual air with no additional findings. The patient tolerated the procedure well. We will place the nasogastric tube on low intermittent wall suction and hopefully with just conservative management, she will regain bowel function and once this occurs, we will start a clear liquid diet and clamp the NG tube and slowly advance as tolerated. Job ID: [id number] DocumentID: [id number] Dictated Date: 10/17/2021 14:55:57 Form Builder Date: 10/17/2021 19:32:05 Dictated By: CARLEY MARCOS MD
[2021-10-17] MEDS: ENOXAPARIN 40 MG/0.4 ML (LOVENOX) SYR SC SCH (20:08)
[2021-10-18 00:55] VITALS: BP 136/67
[2021-10-18] MEDS: morphine INJ 4 MG/ML 1 ML (VIAL/SYRINGE) IVP PRN (02:36)
[2021-10-18 04:45] VITALS: BP 132/66
--- NOTE | 2021-10-18 06:50 | Progress Note - Hospitalist ---
Subjective HPI/CC On Admission Date Seen by Provider: Oct 18, 2021 Time Seen by Provider: 10:00 CC: Abdominal pain with small bowel obstruction HPI: This is a 56yoWF who smokes and has COPD who presents with abdominal pain found to have a small bowel obstruction. NG tube was unable to be placed and she does have a hx of heart disease and stents. She does continue to smoke. Family at the bedside not understanding why something cant be done but she was unable to tolerate the NG tube so may need conscious sedation to place so conferred with Dr. Mack. Subjective/Events-last exam Pt doing okay Nasogastric tube placed during EGD Labs are okay She may leave AMA She is still asking to go home and still has a NG tube hooked up to the wall suction Very difficult to reiterate how difficult it is for compliance Review of Systems Gastrointestinal: Abdominal Pain Focused Exam Lactate Level 10/16/21 17:50: Lactic Acid Level 2.01*H Objective Exam Vital Signs Vital Signs Date Time Temp Pulse Resp B/P (MAP) Pulse Ox O2 Delivery O2 Flow Rate FiO2 10/18/21 18:35 10/18/21 16:05 37.4 88 16 92 Nasal Cannula 2.00 10/16/21 21:51 21 Capillary Refill : General Appearance: No Apparent Distress, WD/WN, Chronically ill Respiratory: Lungs Clear Cardiovascular: Regular Rate, Rhythm Neurologic/Psychiatric: Alert, Oriented x3 Results/Procedures Lab Laboratory Tests 10/18/21 07:15 Patient resulted labs reviewed. Imaging: Reviewed Imaging Report Assessment/Plan Assessment and Plan Assess & Plan/Chief Complaint Assessment: Small bowel obstruction first occurrence CAD previous stents COPD Current smoker Unable to tolerate NG tube placement at bedside so placed during EGD during conscious sedation Plan: NG tube Supportive care RIMMA GARCIA DO Oct 18, 2021 06:50
[2021-10-18 07:30] VITALS: BP 142/67
[2021-10-18 07:30] LABS: BASOPHILS # (AUTO) 0.1 10^3/uL (0.0-0.1); BASOPHILS % (AUTO) 1 % (0-10); EOSINOPHILS # (AUTO) 0.1 10^3/uL (0.0-0.3); EOSINOPHILS % (AUTO) 1 % (0-10); HEMATOCRIT 43 % (35-52); HEMOGLOBIN 14.1 g/dL (11.5-16.0); LYMPHOCYTES # (AUTO) 2.8 10^3/uL (1.0-4.0); LYMPHOCYTES % (AUTO) 31 % (12-44); MEAN CORPUSCULAR HEMOGLOBIN 30 pg (25-34); MEAN CORPUSCULAR HGB CONC 33 g/dL (32-36); MEAN CORPUSCULAR VOLUME 91 fL (80-99); MEAN PLATELET VOLUME 8.8 fL (9.0-12.2); MONOCYTES # (AUTO) 0.7 10^3/uL (0.0-1.0); MONOCYTES % (AUTO) 8 % (0-12); NEUTROPHILS # (AUTO) 5.4 10^3/uL (1.8-7.8); NEUTROPHILS % (AUTO) 60 % (42-75); PLATELET COUNT 174 10^3/uL (130-400); WHITE BLOOD COUNT 9.1 10^3/uL (4.3-11.0)
[2021-10-18 07:48] LABS: ALBUMIN 3.4 GM/DL (3.2-4.5); BILIRUBIN,TOTAL 0.4 MG/DL (0.1-1.0); CALCIUM 8.5 MG/DL (8.5-10.1); CREATININE SERUM 0.73 MG/DL (0.60-1.30); POTASSIUM 3.7 MMOL/L (3.6-5.0); TOTAL PROTEIN 6.3 GM/DL (6.4-8.2)
[2021-10-18] MEDS: NS IV 1000 ML 1,000 ML IV SCH ×2 (08:36→17:33)
[2021-10-18] MEDS: metroNIDAZOLE 500MG/100ML IVPB 100 ML IV SCH (08:36)
[2021-10-18] MEDS: CIPROFLOXACIN IV 400MG/200ML 200 ML IV SCH (08:37)
[2021-10-18] MEDS ORDERED: PANTOPRAZOLE 40 MG (PROTONIX) VIAL IV SCH (09:00)
[2021-10-18 11:21] VITALS: BP 139/69
[2021-10-18] MEDS ORDERED: DIATRIZOATE MEGLUM/SODIUM 37% 120 ML (GASTROGRAFIN) NG ONE (14:00)
--- NOTE | 2021-10-18 14:39 | Progress Note ---
Subjective Date Seen by a Provider: Oct 18, 2021 Time Seen by a Provider: 14:00 Subjective/Events-last exam doing ok. still no BM or flatus. minimal NGT output. minimal abd distention. non tender. Focused Exam Lactate Level 10/16/21 17:50: Lactic Acid Level 2.01*H Objective Exam Vital Signs Date Time Temp Pulse Resp B/P (MAP) Pulse Ox O2 Delivery O2 Flow Rate FiO2 10/18/21 13:00 86 10/18/21 11:21 36.6 84 16 139/69 (92) 90 Nasal Cannula 2.00 10/18/21 09:38 Nasal Cannula 1.00 10/18/21 09:35 94 Nasal Cannula 2.00 10/18/21 08:00 94 Room Air 2.00 10/18/21 07:30 36.2 78 16 142/67 (92) 93 Nasal Cannula 2.00 10/18/21 07:00 75 10/18/21 04:45 36.9 78 16 132/66 (88) 91 Nasal Cannula 2.00 10/18/21 01:00 72 10/18/21 00:55 37.1 75 18 136/67 (90) 89 Nasal Cannula 2.00 10/17/21 21:48 Room Air 10/17/21 20:08 93 Nasal Cannula 2.00 10/17/21 19:19 37.5 85 16 155/85 (108) 92 Nasal Cannula 2.00 10/17/21 19:00 82 10/17/21 15:29 37.2 81 18 129/80 (96) 90 Room Air 10/17/21 15:00 99 16 92 Room Air 10/17/21 14:55 97 16 92 Room Air 10/17/21 14:50 104 16 96 OxyMask 10 I & O 10/18/21 07:00 Intake Total 1700 ml Output Total 250 ml Balance 1450 ml Capillary Refill : General Appearance: No Apparent Distress HEENT: PERRL/EOMI Neck: Full Range of Motion Respiratory: Chest Non Tender, Lungs Clear, Normal Breath Sounds Cardiovascular: Regular Rate, Rhythm Gastrointestinal: normal bowel sounds, soft Extremity: Normal Capillary Refill Neurologic/Psychiatric: Alert, Oriented x3 Skin: Normal Color Lymphatic: No Adenopathy Results Lab Laboratory Tests 10/18/21 07:15: White Blood Count 9.1, Red Blood Count 4.76, Hemoglobin 14.1, Hematocrit 43, Mean Corpuscular Volume 91, Mean Corpuscular Hemoglobin 30, Mean Corpuscular Hemoglobin Concent 33, Red Cell Distribution Width 14.0, Platelet Count 174, Mean Platelet Volume 8.8L, Immature Granulocyte % (Auto) 0, Neutrophils (%) (Auto) 60, Lymphocytes (%) (Auto) 31, Monocytes (%) (Auto) 8, Eosinophils (%) (Auto) 1, Basophils (%) (Auto) 1, Neutrophils # (Auto) 5.4, Lymphocytes # (Auto) 2.8, Monocytes # (Auto) 0.7, Eosinophils # (Auto) 0.1, Basophils # (Auto) 0.1, Immature Granulocyte # (Auto) 0.0, Sodium Level 137, Potassium Level 3.7, Chloride Level 107, Carbon Dioxide Level 21, Anion Gap 9, Blood Urea Nitrogen 9, Creatinine 0.73, Estimat Glomerular Filtration Rate 82, BUN/Creatinine Ratio 12, Glucose Level 81, Calcium Level 8.5, Corrected Calcium 9.0, Total Bilirubin 0.4, Aspartate Amino Transf (AST/SGOT) 16, Alanine Aminotransferase (ALT/SGPT) 14, Alkaline Phosphatase 45, Total Protein 6.3L, Albumin 3.4 Assessment/Plan Assessment/Plan Assess & Plan/Chief Complaint PSBO. resolving. g-graffin traverse colon within one hour. will start clears and advance as tolerated. CARLEY MARCOS MD Oct 18, 2021 14:39
--- NOTE | 2021-10-18 15:18 | Discharge Inst-Surgical ---
D/C Lap Instructions-HEMANT Follow Up PRN Activity as tolerated High Fiber Diet 25g or more per day Avoid Alcohol, Caffeine, Spicy [place] and Acid foods. Drink 64 fluid oz or more of fluids per day. Symptoms to Report: Fever over 101 degree F, Nausea/Vomiting If any problems/questions: Contact your physician or go to Emergency Room CARLEY MARCOS MD Oct 18, 2021 15:18
--- NOTE | 2021-10-18 15:19 | Diagnostic Imaging Report ---
INDICATION: Small bowel obstruction. TECHNIQUE: 120 mL of Gastrografin contrast mixed in 120 mL of water was injected through the patient's indwelling nasogastric tube. Serial radiographs of the abdomen were then obtained. FINDINGS: Post-injection films demonstrate contrast within small bowel loops. There is rapid transit of contrast through the small bowel into the right colon with contrast noted in the right colon at 15 minutes. No complete obstruction is seen. Mucosal fold pattern is normal. No masses are identified. IMPRESSION: No evidence of complete small bowel obstruction. Dictated by: Dictated on workstation # [id number]
[2021-10-18 16:05] VITALS: BP 142/67
--- NOTE | 2021-10-18 16:15 | Discharge Summary ---
Discharge Summary Hospital Course Was the Problem List Reviewed?: Yes Problems/Dx: (1) SBO (small bowel obstruction) Status: Acute Hospital Course Date of Admission: Oct 16, 2021 at 20:45 Admission Diagnosis : Family Physician/Provider: Jacqueline Hallman Aprn Date of Discharge: 10/18/21 Discharge Diagnosis: Small bowel obstruction, COPD, smoker, CAD Hospital Course: Short hospital course after she insisted on discharging when she tolerated a soft diet. We discharged to avoid AGAINST MEDICAL ADVICE discharge. She tolerated NG tube after it was placed during conscious sedation during EGD since she was unable to tolerated at the bedside. Labs and Pending Lab Test: Laboratory Tests 10/18/21 07:15: White Blood Count 9.1, Red Blood Count 4.76, Hemoglobin 14.1, Hematocrit 43, Mean Corpuscular Volume 91, Mean Corpuscular Hemoglobin 30, Mean Corpuscular Hemoglobin Concent 33, Red Cell Distribution Width 14.0, Platelet Count 174, Mean Platelet Volume 8.8L, Immature Granulocyte % (Auto) 0, Neutrophils (%) (Auto) 60, Lymphocytes (%) (Auto) 31, Monocytes (%) (Auto) 8, Eosinophils (%) (Auto) 1, Basophils (%) (Auto) 1, Neutrophils # (Auto) 5.4, Lymphocytes # (Auto) 2.8, Monocytes # (Auto) 0.7, Eosinophils # (Auto) 0.1, Basophils # (Auto) 0.1, Immature Granulocyte # (Auto) 0.0, Sodium Level 137, Potassium Level 3.7, Chloride Level 107, Carbon Dioxide Level 21, Anion Gap 9, Blood Urea Nitrogen 9, Creatinine 0.73, Estimat Glomerular Filtration Rate 82, BUN/Creatinine Ratio 12, Glucose Level 81, Calcium Level 8.5, Corrected Calcium 9.0, Total Bilirubin 0.4, Aspartate Amino Transf (AST/SGOT) 16, Alanine Aminotransferase (ALT/SGPT) 14, Alkaline Phosphatase 45, Total Protein 6.3L, Albumin 3.4 Home Meds Active Reported Gabapentin 100 Mg Capsule 100 Mg PO TID PRN Flonase Allergy Relief (Fluticasone Propionate) 9.9 Ml Reeder.susp 1 Reeder NSEACH BID Hydroxyzine HCl 50 Mg Tablet 50 Mg PO HS PRN Isosorbide Mononitrate ER (Isosorbide Mononitrate) 30 Mg Tab.er.24h 30 Mg PO DAILY Escitalopram Oxalate 10 Mg Tablet 10 Mg PO DAILY Metoprolol Succinate 50 Mg Tab.er.24h 50 Mg PO DAILY Levothyroxine Sodium 75 Mcg Tablet 75 Mcg PO DAILY Rosuvastatin Calcium 40 Mg Tablet 40 Mg PO HS Clopidogrel (Clopidogrel Bisulfate) 75 Mg Tablet 75 Mg PO DAILY Pantoprazole Sodium 40 Mg Tablet.dr 40 Mg PO DAILY Assessment/Pt Instructions PCP in 1 week Discharge Planning: <30 minutes discharge planning Discharge Physical Examination Vital Signs Vital Signs Date Time Temp Pulse Resp B/P (MAP) Pulse Ox O2 Delivery O2 Flow Rate FiO2 10/18/21 16:05 37.4 88 16 142/67 (92) 92 Nasal Cannula 2.00 10/16/21 21:51 21 General Appearance: No Apparent Distress, WD/WN Allergies: Coded Allergies: Penicillins (Verified Allergy, Unknown, 08/30/21) Sulfa (Sulfonamide Antibiotics) (Verified Allergy, Unknown, 08/30/21) Discharge Summary Date of Admission Oct 16, 2021 at 20:45 Date of Discharge Discharge Date: Oct 18, 2021 Admission Diagnosis Assessment: Small bowel obstruction first occurrence CAD previous stents COPD Current smoker Unable to tolerate NG tube placement at bedside Plan: Dr. MARCOS consult EGD placement of NG tube RIMMA GARCIA DO Oct 18, 2021 16:15
== END 2021-10-18 18:35 | disposition home or self-care (01) | DRG 389 ==
LOC: EDUNIT# 17:40 → ER FS 17:42 → 4TH 20:45
PROVIDERS: ADMIT Internal Medicine; ATTEND Internal Medicine
PROC: 0DB68ZX Excision of Stomach, Via Natural or Artificial Opening Endoscopic, Diagnostic (ICD-10-PCS; 2021-10-17)
PROC: 0DH68UZ Insertion of Feeding Device into Stomach, Via Natural or Artificial Opening Endoscopic (ICD-10-PCS; principal; 2021-10-17 14:25)
DX: K56.600 Partial intestinal obstruction, unspecified as to cause (principal); N39.0 Urinary tract infection, site not specified; J44.9 Chronic obstructive pulmonary disease, unspecified; F17.210 Nicotine dependence, cigarettes, uncomplicated; I25.10 Atherosclerotic heart disease of native coronary artery without angina pectoris; K29.70 Gastritis, unspecified, without bleeding; K21.9 Gastro-esophageal reflux disease without esophagitis; Z95.5 Presence of coronary angioplasty implant and graft; I10 Essential (primary) hypertension; Z20.822 Contact with and (suspected) exposure to COVID-19
CPT/HCPCS: 36415; 74019; 74177; 74250; 76705; 80053; 81000; 83605; 83690; 85007; 85025; 85027; 85610; 85730; 87636; 94760

== ENCOUNTER → 2022-10-19 | Outpatient (CLI) | payer MEDICARE ==
[~2022-10-19] MED LIST: CLOP75TA28 PO; ESCI-2 PO; FLUT9.9S NSEACH; GABA-486 PO; HYDR50TA76 PO; ISOS30TA82 PO; LEVO75TA6 PO; METO50TA7 PO; PANT40TA52 PO; ROSU40TA23 PO
--- NOTE | 2022-10-19 12:39 | Diagnostic Imaging Report ---
CT Lung Screening INDICATION: 52-pack year history of smoking. TECHNIQUE: Noncontrast, low-dose CT imaging performed according to the lung cancer screening protocol. Auto Exposure Controls were utilize during the CT exam to meet ALARA standards for radiation dose reduction. COMPARISON: 02/07/2021 FINDINGS: Evaluation lung brown demonstrates background moderate emphysematous changes. No suspicious pulmonary nodule or mass is seen. There is no focal consolidation, large effusion, nor pneumothorax. Cardiomediastinal structures show normal heart size. Borderline prominent precarinal lymph node measures 1.8 x 0.9 cm. This, however stable compared to prior exam. No other suspicious mediastinal, hilar, or axillary adenopathy is seen on this noncontrast study. Osseous structures show no acute abnormalities. No lytic or blastic bony lesions are identified. Included portions of the upper abdomen are unremarkable as well. IMPRESSION: 1. No suspicious pulmonary nodule or mass. 2. No other acute cardiopulmonary process. 3. Background moderate emphysematous changes. LUNG-RADS CATEGORY:1 MODIFIER:None Dictated by: Dictated on workstation # [id number]
== END ==
LOC: RAD 10:44
PROVIDERS: ATTEND Nurse Practitioner
DX: Z12.2 Encounter for screening for malignant neoplasm of respiratory organs (principal); J43.9 Emphysema, unspecified; F17.210 Nicotine dependence, cigarettes, uncomplicated
CPT/HCPCS: 71271

== ENCOUNTER 2023-02-25 14:11 | Emergency (ER) | payer MEDICARE, OTHER ==
[~2023-02-25] VITALS: Ht 162 cm; Wt 72.0 kg
[2023-02-25 14:18] VITALS: BP 137/73
[2023-02-25] MEDS ORDERED: NS 100 ML (IVPB) BAG IV ONE (14:30)
[2023-02-25] MEDS ORDERED: HOLD METFORMIN - RECEIVED CONTRAST 20 ML VIAL IV SCH (14:30)
[2023-02-25] MEDS ORDERED: IOHEXOL 350 MG/ML 100 ML (OMNIPAQUE 350) VIAL IV ONE (14:30)
[2023-02-25] MEDS ORDERED: MEROPENEM 1,000 MG in NS (IVPB) 100 ML IV STA (14:45)
[2023-02-25] MEDS ORDERED: CLINDAMYCIN 900 MG/50 ML IVPB 50 ML IV STA (14:45)
[2023-02-25] MEDS ORDERED: NS IV 1000 ML 1,000 ML IV STA (14:45)
[2023-02-25] MEDS ORDERED: KETOROLAC 30 MG/ML VIAL IVP STA (14:45)
[2023-02-25] MEDS ORDERED: MEROPENEM 500 MG VIAL (MERREM) IV ONE (15:04)
[2023-02-25 15:11] LABS: BASOPHILS % (AUTO) 1 % (0-10); EOSINOPHILS % (AUTO) 0 % (0-10); HEMATOCRIT 43 % (35-52); HEMOGLOBIN 14.8 g/dL (11.5-16.0); LYMPHOCYTES # (AUTO) 1.1 10^3/uL (1.0-4.0); LYMPHOCYTES % (AUTO) 36 % (12-44); MEAN CORPUSCULAR HEMOGLOBIN 30 pg (25-34); MEAN CORPUSCULAR HGB CONC 34 g/dL (32-36); MEAN CORPUSCULAR VOLUME 87 fL (80-99); MEAN PLATELET VOLUME 9.8 fL (9.0-12.2); MONOCYTES # (AUTO) 0.3 10^3/uL (0.0-1.0); MONOCYTES % (AUTO) 9 % (0-12); NEUTROPHILS # (AUTO) 1.7 10^3/uL (1.8-7.8); NEUTROPHILS % (AUTO) 54 % (42-75); PLATELET COUNT 119 10^3/uL (130-400)
--- NOTE | 2023-02-25 15:14 | ED Upper Extremity ---
General Chief Complaint: Upper Extremity Stated Complaint: RT HAND SWELLING Nursing Triage Note: Patient has presented to ER with cc of right hand injury yesterday. She was working with a goat and his head hit her right hand and she stuck the back of her right hand with a barbed wire point. She was seen in urgent care this morning and started on keflex prescription - she had an xray and this afternoon she was called by the urgent care provider to come to ER for further evaluation of her hand. Source: patient, RN/MD (Nurse practitioner Graciela from [facility] urgent care) History of Present Illness Date Seen by Provider: February 25, 2023 Time Seen by Provider: 14:16 Initial Comments 57 yo female presenting to the ED with complaint of right hand pain and swelling. She was seen with Urgent care this am for these complaints. They obtained xrays of the hand and she had no fractures but she has subcutaneous air in the tissues seen on lateral image. The nurse practitioner called to advise us that she was having the patient come here to the ED. She then called the patient and told her to come to the ED for CT scan and testing to look at her hand in more detail. She states her last tetanus booster was less than 5 years ago. She had been started on Cephalexin 500 mg po tid and started this around 1 pm today. She has pain extending up to the wrist and forearm. She took Acetaminophen at home for pain. The initial injury happened on Saturday 02/24 around 1500. She was trying to get a goat's horn out of the fence where it was stuck. In the process she had it smash her hand against a section of barbed wire and she was stuck on this for at least 20 minutes. She had continued pain and swelling that was worsening with erythema increasing since yesterday. When the Urgent care saw she had subcutaneous air they told her to go to the ED. She denies fever or chills. Onset: yesterday Severity: severe Pain/Injury Location: right hand (back of right hand) Method of Injury: other (caught on barbed wire from goat hitting her hand into section of fence) Modifying Factors: Worse With Movement; Improves With Other (elevation of hand helps with throbbing pain) Allergies and Home Medications Allergies Coded Allergies: Penicillins (Verified Allergy, Unknown, 08/30/21) Sulfa (Sulfonamide Antibiotics) (Verified Allergy, Unknown, 08/30/21) Patient Home Medication List Home Medication List Reviewed: Yes Clindamycin HCl (Clindamycin HCl) 300 Mg Capsule, 300 MG PO Q8H Prescribed by: ROSANGELA FLORENTINO on 02/25/23 1628 Clopidogrel Bisulfate (Clopidogrel) 75 Mg Tablet, 75 MG PO DAILY, (Reported) Entered as Reported by: ALMA GRAY on 10/17/21 120 Escitalopram Oxalate (Escitalopram Oxalate) 10 Mg Tablet, 10 MG PO DAILY, (R eported) Entered as Reported by: ALMA GRAY on 10/17/21 120 Fluticasone Propionate (Flonase Allergy Relief) 9.9 Ml [place].susp, 1 SPRAY NSEACH BID, (Reported) Entered as Reported by: ALMA GRAY on 10/17/21 120 Gabapentin (Gabapentin) 100 Mg Capsule, 100 MG PO TID PRN for PAIN-BREAKTHROUGH, (Reported) Entered as Reported by: ALMA GRYA on 10/17/21 1210 Hydroxyzine HCl (Hydroxyzine HCl) 50 Mg Tablet, 50 MG PO HS PRN for ANXIETY/SLEEP, (Reported) Entered as Reported by: ALMA GRAY on 10/17/21 120 Isosorbide Mononitrate (Isosorbide Mononitrate ER) 30 Mg Tab.er.24h, 30 MG PO DAILY, (Reported) Entered as Reported by: ALMA GRAY on 10/17/21 120 Levothyroxine Sodium (Levothyroxine Sodium) 75 Mcg Tablet, 75 MCG PO DAILY, (Reported) Entered as Reported by: ALMA GRAY on 10/17/21 120 Metoprolol Succinate (Metoprolol Succinate) 50 Mg Tab.er.24h, 50 MG PO DAILY, (Reported) Entered as Reported by: ALMA GRAY on 10/17/21 120 Pantoprazole Sodium (Pantoprazole Sodium) 40 Mg Tablet.dr, 40 MG PO DAILY, (Reported) Entered as Reported by: ALMA GRAY on 10/17/21 120 Rosuvastatin Calcium (Rosuvastatin Calcium) 40 Mg Tablet, 40 MG PO HS, (Reported) Entered as Reported by: ALMA GRAY on 10/17/21 120 Review of Systems Constitutional: No chills, No fever EENTM: no symptoms reported Respiratory: no symptoms reported Cardiovascular: no symptoms reported Gastrointestinal: no symptoms reported Genitourinary: no symptoms reported Musculoskeletal: see HPI Skin: see HPI, change in color Psychiatric/Neurological: Denies Numbness, Denies Tingling Past Jagcsve-Mdxdrx-Hpnbrj Hx Patient Social History Tobacco Use?: Yes Tobacco type used: Cigarettes Smoking Status: Current Everyday Smoker Use of E-Cig and/or Vaping dev: No Substance use?: No Alcohol Use?: No Immunizations Up To Date First/Initial COVID19 Vaccinat: MODERNA Second COVID19 Vaccination Amilcar: MODERNA Third COVID19 Vaccination Date: Past Medical History Surgery/Hospitalization HX: hypothyroid, hypertension, peripheral vascular disease, hyperlipidemia Surgeries: Yes Hysterectomy, Orthopedic COPD Coronary Artery Disease, Hypertension Physical Exam Vital Signs Vital Signs - First Documented 02/25/23 14:18 Temp 37.0 Pulse 95 Resp 16 B/P (MAP) 137/73 (94) Pulse Ox 97 O2 Delivery Room Air Capillary Refill : Height, Weight, BMI Height: '" Weight: lbs. oz. kg; 27.00 BMI Method: General Appearance: WD/WN, no apparent distress Cardiovascular: normal peripheral pulses, regular rate, rhythm Respiratory: chest non-tender, lungs clear, normal breath sounds Hand: normal ROM, laceration (puncture wound to back of right hand), soft tissue tenderness, stiffness, swelling Neurologic/Tendon: normal sensation, normal motor functions, normal tendon functions Neurologic/Psychiatric: alert, oriented x 3 Skin: warm/dry, other (erythema with increased warmth to back of right hand and swelling and tenderness with palpation and movement of the fingers and hand) Progress/Results/Core Measures Results/Orders Lab Results Laboratory Tests Test 02/25/23 14:50 Range/Units White Blood Count 3.0 L 4.3-11.0 10^3/uL Red Blood Count 4.96 3.80-5.11 10^6/uL Hemoglobin 14.8 11.5-16.0 g/dL Hematocrit 43 35-52 % Mean Corpuscular Volume 87 80-99 fL Mean Corpuscular Hemoglobin 30 25-34 pg Mean Corpuscular Hemoglobin Concent 34 32-36 g/dL Red Cell Distribution Width 14.7 H 10.0-14.5 % Platelet Count 119 L 130-400 10^3/uL Mean Platelet Volume 9.8 9.0-12.2 fL Immature Granulocyte % (Auto) 0 % Neutrophils (%) (Auto) 54 42-75 % Lymphocytes (%) (Auto) 36 12-44 % Monocytes (%) (Auto) 9 0-12 % Eosinophils (%) (Auto) 0 0-10 % Basophils (%) (Auto) 1 0-10 % Neutrophils # (Auto) 1.7 L 1.8-7.8 10^3/uL Lymphocytes # (Auto) 1.1 1.0-4.0 10^3/uL Monocytes # (Auto) 0.3 0.0-1.0 10^3/uL Eosinophils # (Auto) 0.0 0.0-0.3 10^3/uL Basophils # (Auto) 0.0 0.0-0.1 10^3/uL Immature Granulocyte # (Auto) 0.0 0.0-0.1 10^3/uL Neutrophils % (Manual) 40 % Lymphocytes % (Manual) 30 % Monocytes % (Manual) 5 % Band Neutrophils 18 % Atypical Lymphocytes 7 % Platelet Estimate DECREASED Percent Immature Platelet Fraction 3.1 0.0-7.6 % Blood Morphology Comment NORMAL Sodium Level 134 L 135-145 MMOL/L Potassium Level 3.8 3.6-5.0 MMOL/L Chloride Level 102 98-107 MMOL/L Carbon Dioxide Level 26 21-32 MMOL/L Anion Gap 6 5-14 MMOL/L Blood Urea Nitrogen 8 7-18 MG/DL Creatinine 0.94 0.60-1.30 MG/DL Estimat Glomerular Filtration Rate 70 BUN/Creatinine Ratio 9 Glucose Level 80 70-105 MG/DL Lactic Acid Level 0.91 0.50-2.00 MMOL/L Calcium Level 9.2 8.5-10.1 MG/DL Corrected Calcium 9.1 8.5-10.1 MG/DL Total Bilirubin 0.4 0.1-1.0 MG/DL Aspartate Amino Transf (AST/SGOT) 43 H 5-34 U/L Alanine Aminotransferase (ALT/SGPT) 30 0-55 U/L Alkaline Phosphatase 76 40-136 U/L C-Reactive Protein 1.83 H <0.50 MG/DL Total Protein 7.3 6.4-8.2 GM/DL Albumin 4.1 3.2-4.5 GM/DL My Orders Orders - ROSANGELA FLORENTINO MD Cbc With Automated Diff (02/25/23 14:26) Comprehensive Metabolic Panel (02/25/23 14:26) Blood Culture (02/25/23 14:26) Ed Iv/Invasive Line Start (02/25/23 14:26) Crp Fs (02/25/23 14:26) Lactic Acid Analyzer (02/25/23 14:26) Ct Extremity Upper Right W (02/25/23 14:26) Iohexol Injection (Omnipaque 350 Mg/Ml 1 (02/25/23 14:30) Received Contrast (Hold Metformin- Contr (02/25/23 14:30) Ns (Ivpb) (Sodium Chloride 0.9% Ivpb Bag (02/25/23 14:30) Clindamycin 900 Mg/50 Ml Ivpb (Cleocin P (02/25/23 14:45) Meropenem (Merrem 1000 Mg) (02/25/23 14:45) Ketorolac Injection (Toradol Injection) (02/25/23 14:45) Ns Iv 1000 Ml (Sodium Chloride 0.9%) (02/25/23 14:45) Meropenem (Merrem 500 Mg) (02/25/23 15:04) Manual Differential (02/25/23 14:50) Medications Given in ED Current Medications Medications Dose Ordered Sig/Carlos Route Start Time Stop Time Status Last Admin Dose Admin Iohexol 100 ml ONCE ONCE IV 02/25/23 14:30 02/25/23 14:31 DC 02/25/23 15:01 50 ML Meropenem 500 mg STK-MED ONCE IV 02/25/23 15:04 02/25/23 15:06 DC 02/25/23 15:45 1,000 MG Sodium Chloride 100 ml ONCE ONCE IV 02/25/23 14:30 02/25/23 14:31 DC 02/25/23 15:02 100 ML Vital Signs/I&O 02/25/23 14:18 Temp 37.0 Pulse 95 Resp 16 B/P (MAP) 137/73 (94) Pulse Ox 97 O2 Delivery Room Air Blood Pressure Mean: 94 Admisison Planning May Need Admission (Planning): 14:20 Progress Progress Note #1: Progress Note Potential diagnosis of necrotizing fasciitis, abscess, subcutaneous air from puncture wound, cellulitis. Patient presents saying that she was told that she needed a CT scan of her hand. 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 She voices this is a reason that she cannot go emergently to see any provider or have any additional care. I advised her that she needs to see hand surgeon for the injury and may need emergent surgery intervention. She again re-iterates that she can not go anywhere today and would have to make arrangements for her brother's foster children to have a polysom tech. She voiced understanding that she could become septic and or lose her hand or her whole arm but says there is nothing else that can be done until she arranges for polysom tech for her brother's foster children. Will call income tax consultant Orthopedic surgeon, Dr. Kalia Romo, at [facility] and see what he recommends and if CT scan would help or not. [address] Romo and he was in the OR. I asked him about management of hand injury with subcutaneious air in tissues on plain film and concern for necrotizing fasciitis. He stated that he does not do hand specialty care like this and the patient needs to get to a Hand surgeon right away. 1445 after review of online medical reference UpToDate I ordered labs, blood cultures, lactic acid and CT scan of right upper extremity. Saline 1 L IVF bolus for hydration, Toradol 30 mg IV for pain and swelling, Meropenem 1 gm IV since pt has pcn allergy, Clindamycin 900mg IV x 1 for possible clostridium infection in skin and tissues causing air in tissues. Patient still voices that she can not go anywhere today and voiced understanding that it was an emergency and she could be septic, low her hand, lose her arm, lose her life. She still said she would not have a way to go anywhere today due to her being the only approved person for watching the foster children of her brothers. Will have the antibiotics infuse and see what her labs and imaging show while trying to reach out to a hand specialist in [place]. will contact [facility] about possible referral or if possible to make appointment for the patient. 1554 called [facility] and after extended period on hold they allowed me to leave a voice message for the patient. Given information about the patient's name and injury and concern for necrotizing fasciitis and requested a call back. Progress Note #2: Time: 16:16 Progress Note I reviewed the radiologist report on the CT scan and they were reporting that she did have some subcutaneous air consistent with her puncture wound to the hand. They did not see air tracking through the tissues for definite necrotizing fasciitis. Her blood count showed white blood cell count of 3 with hemoglobin of 14.8. She did have 40% neutrophils and 19% bands. Comprehensive metabolic profile did not show acute significant abnormalities. She did have an elevated CRP of 1.83. She had a negative lactic acid 0.91. Patient reports that pain and swelling seems to be improved since receiving treatment here in the ED. Encouraged to keep hand elevated above heart level to help with swelling and pain. Stop the cephalexin antibiotic prescribed from urgent care and start clindamycin. Will give information for the [facility] so patient may call directly to set up an appointment. if they do call me back from message I left with scheduling at 1510 I will notify patient of the appointment time and information. Advised her that she could also call her insurance company to see what Hand surgeon they might recommend she see that is in network for her. Diagnostic Imaging Diagonstic Imaging: CT Plain Films/CT/US/NM/MRI: hand Comments [facility]. [place], [place] NAME: NEG[facility]O [facility] REC#: [id number] PT STATUS: REG ER : 1965 PHYSICIAN: ROSANGELA FLORENTINO MD ADMIT DATE: 02/25/23/ER FS Draft Date of Exam:02/25/23 CT EXTREMITY UPPER RIGHT W PROCEDURE: CT right upper extremity with contrast. TECHNIQUE: Axial images were obtained through the right upper extremity after intravenous contrast and reformatted into coronal and sagittal oblique planes. Auto Exposure Controls were utilized during the CT exam to meet ALARA standards for radiation dose reduction. INDICATION: Puncture wound of the right hand, subcutaneous air and plain films with pain and swelling of the right hand. COMPARISON: None FINDINGS: No acute fracture is seen in the right hand. Alignment appears normal. There is an old nonunited fracture of the ulnar styloid process. No cortical erosions are seen. There is moderate soft tissue edema at the dorsal aspect of the hand, particularly dorsal to the metacarpals. There are multiple foci of soft tissue gas at the dorsal right hand. These are mostly along the superficial fascia. There may be some air within the third finger extensor digitorum tendon sheath. No rim-enhancing drainable fluid collection is seen. IMPRESSION: 1. Soft tissue edema and foci of soft tissue gas in the dorsal right hand, consistent with laceration/puncture injury. This may involve the extensor digitorum tendon sheath. No rim-enhancing fluid collection is seen. 2. Chronic findings in the right hand with no acute osseous abnormality seen. Dictated on workstation # [id number] Dict: 02/25/23 1533 Trans: 02/25/23 1549 [facility] [id number] Interpreted by: ALICE PAUL MD Electronically signed by: Reviewed: Reviewed by Me Departure Impression Primary Impression: Puncture wound of right hand with infection Qualified Codes: S61.431A - Puncture wound without foreign body of right hand, initial encounter; L08.9 - Local infection of the skin and subcutaneous tissue, unspecified Additional Impression: Subcutaneous air Qualified Codes: T79.7XXA - Traumatic subcutaneous emphysema, initial encou nter Disposition: HOME, SELF-CARE Condition: Stable Departure-Patient Inst. Decision time for Depature: 16:23 Referrals: [facility] (PCP/Family) Primary Care Physician Patient Instructions: Wound Care ED, Laceration Infection ED Add. Discharge Instructions: Stop the cephalexin or Keflex that you started this afternoon and instead start taking the clindamycin. You would need to take this approximately every 8 hours or 3 times a day. You could take the next dose before bed tonight. Call and follow-up with hand surgeon about the infection and pain. If your symptoms are worsening instead of improving while taking the antibiotics then return or seek medical care with the hand surgeon. You have a risk of becoming septic, losing your hand, losing your arm, from infection if the infection spreads and is not treated with antibiotics and seeing a hand surgeon. Typically the hand surgeon would also need to operate to help clean out infection to be able to try and save your hand and function of your hand. You could try checking with your insurance company to see if they have a specific hand surgeon that was in network for you. I placed a call to [facility], an orthopedic group out of [place]. Their phone number is [phone] and you should call directly to see about setting up an appointment. They also have an online website and information about setting up appointment and detail a clinic option of [facility] where you could be seen and evaluated as well. The website is [email or web address]. All discharge instructions reviewed with patient and/or family. Voiced understanding. Scripts Clindamycin HCl (Clindamycin HCl) 300 Mg Capsule 300 MG PO Q8H for Cellulitis hand/puncture wound for 7 Days, #21 CAP 0 Refills Prov: ROSANGELA FLORENTINO MD 02/25/23 ROSANGELA FLORENTINO MD February 25, 2023 15:14
[2023-02-25 15:35] LABS: ATYPICAL LYMPHOCYTES 7 %; BAND NEUTROPHILS 18 %; LYMPHOCYTES % (MANUAL) 30 %; MONOCYTES % (MANUAL) 5 %; NEUTROPHILS % (MANUAL) 40 %
[2023-02-25 15:36] LABS: PLATELET ESTIMATE DECREASED; RBC MORPH NORMAL
[2023-02-25 15:37] LABS: ALBUMIN 4.1 GM/DL (3.2-4.5); BILIRUBIN,TOTAL 0.4 MG/DL (0.1-1.0); CALCIUM 9.2 MG/DL (8.5-10.1); CREATININE SERUM 0.94 MG/DL (0.60-1.30); POTASSIUM 3.8 MMOL/L (3.6-5.0); TOTAL PROTEIN 7.3 GM/DL (6.4-8.2)
--- NOTE | 2023-02-25 15:50 | Diagnostic Imaging Report ---
PROCEDURE: CT right upper extremity with contrast. TECHNIQUE: Axial images were obtained through the right upper extremity after intravenous contrast and reformatted into coronal and sagittal oblique planes. Auto Exposure Controls were utilized during the CT exam to meet ALARA standards for radiation dose reduction. INDICATION: Puncture wound of the right hand, subcutaneous air and plain films with pain and swelling of the right hand. COMPARISON: None FINDINGS: No acute fracture is seen in the right hand. Alignment appears normal. There is an old nonunited fracture of the ulnar styloid process. No cortical erosions are seen. There is moderate soft tissue edema at the dorsal aspect of the hand, particularly dorsal to the metacarpals. There are multiple foci of soft tissue gas at the dorsal right hand. These are mostly along the superficial fascia. There may be some air within the third finger extensor digitorum tendon sheath. No rim-enhancing drainable fluid collection is seen. IMPRESSION: 1. Soft tissue edema and foci of soft tissue gas in the dorsal right hand, consistent with laceration/puncture injury. This may involve the extensor digitorum tendon sheath. No rim-enhancing fluid collection is seen. 2. Chronic findings in the right hand with no acute osseous abnormality seen. Dictated by: Dictated on workstation # [id number]
[2023-02-25] MEDS ORDERED: CLIN-144 PO (16:28)
== END 2023-02-25 16:45 | disposition home or self-care (01) ==
LOC: EDUNIT# 14:11 → ER FS 14:13
DX: S61.431A Puncture wound without foreign body of right hand, initial encounter (principal); T79.7XXA Traumatic subcutaneous emphysema, initial encounter; L08.9 Local infection of the skin and subcutaneous tissue, unspecified; R94.4 Abnormal results of kidney function studies; F17.210 Nicotine dependence, cigarettes, uncomplicated; Z88.1 Allergy status to other antibiotic agents; W23.1XXA Caught, crushed, jammed, or pinched between stationary objects, initial encounter; Y93.K9 Activity, other involving animal care
CPT/HCPCS: 36415; 73201; 80053; 83605; 85007; 85027; 86141; 87040

== ENCOUNTER 2023-07-20 05:36 | Observation (INO) | payer MEDICARE, OTHER ==
[~2023-07-20] VITALS: Ht 162.5 cm; Wt 66.6 kg
[~2023-07-20 05:36] MED LIST changes: +CLIN-144 PO
[2023-07-20] MEDS ORDERED: fentaNYL INJECTION 100 MCG/2 ML VIAL IVP ONE (06:00)
[2023-07-20] MEDS ORDERED: ONDANSETRON INJECTION 4 MG/2 ML (SDV) IVP ONE (06:00)
[2023-07-20] MEDS ORDERED: LACTATED RINGERS 1,000 ML 1,000 ML IV ONE (06:00)
[2023-07-20 06:11] LABS: BACTERIA,URINE TRACE /HPF; BILIRUBIN,URINE 2+ (NEGATIVE); CLARITY,URINE CLEAR; COLOR,URINE DARK YELLOW; GLUCOSE, URINE (UA) TRACE (NEGATIVE); KETONES,URINE 1+ (NEGATIVE); LEUKOCYTE ESTERASE ,URINE NEGATIVE (NEGATIVE); NITRITE,URINE NEGATIVE (NEGATIVE); PROTEIN,URINE 2+ (NEGATIVE)
[2023-07-20 06:12] LABS: YEAST,URINE MODERATE /HPF
[2023-07-20 06:12] LABS: BASOPHILS % (AUTO) 0 % (0-10); EOSINOPHILS % (AUTO) 0 % (0-10); HEMATOCRIT 51 % (35-52); HEMOGLOBIN 17.7 g/dL (11.5-16.0); LYMPHOCYTES % (AUTO) 21 % (12-44); MEAN CORPUSCULAR HEMOGLOBIN 30 pg (25-34); MEAN CORPUSCULAR HGB CONC 35 g/dL (32-36); MEAN CORPUSCULAR VOLUME 87 fL (80-99); MEAN PLATELET VOLUME 9.2 fL (9.0-12.2); MONOCYTES % (AUTO) 4 % (0-12); NEUTROPHILS % (AUTO) 74 % (42-75); PLATELET COUNT 226 10^3/uL (130-400); WHITE BLOOD COUNT 15.3 10^3/uL (4.3-11.0)
[2023-07-20 06:13] LABS: BASOPHILS # (AUTO) 0.1 10^3/uL (0.0-0.1); LYMPHOCYTES # (AUTO) 3.2 X 10^3 (1.0-4.0); MONOCYTES # (AUTO) 0.7 X 10^3 (0.0-1.0); NEUTROPHILS # (AUTO) 11.4 X 10^3 (1.8-7.8)
[2023-07-20 06:18] LABS: BUN/CREATININE RATIO 21; CARBON DIOXIDE 20 MMOL/L (21-32); CHLORIDE 100 MMOL/L (98-107); CREATININE SERUM 0.76 MG/DL (0.60-1.30); GFR ESTIMATED 90; POTASSIUM 3.6 MMOL/L (3.6-5.0); SODIUM 136 MMOL/L (135-145)
[2023-07-20 06:19] LABS: ALANINE AMINOTRANSFERASE 9 U/L (0-55); ALBUMIN 4.8 GM/DL (3.2-4.5); ALKALINE PHOSPHATASE 75 U/L (40-136); BILIRUBIN,TOTAL 0.7 MG/DL (0.1-1.0); CALCIUM 9.9 MG/DL (8.5-10.1); GLUCOSE 131 MG/DL (70-105); LIPASE 21 U/L (8-78); TOTAL PROTEIN 8.3 GM/DL (6.4-8.2)
[2023-07-20] MEDS ORDERED: morphine INJ 10 MG/ML 1ML (SYR OR VIAL) IVP STA (06:23)
[2023-07-20 06:25] LABS: LYMPHOCYTES % (MANUAL) 18 %; MONOCYTES % (MANUAL) 4 %; NEUTROPHILS % (MANUAL) 78 %
--- NOTE | 2023-07-20 06:32 | ED Abdominal Pain ---
General Chief Complaint: Abdominal/GI Problems Stated Complaint: ABD PAIN,VOMITING Nursing Triage Note: Patient states that she is having stomach cramping and vomiting. Patient reports having a bowel obstruction approximately 2 years ago. She reports this feels similar and is concerned she has a bowel obstruction. Patients symptoms began yesterday. Last bowel movement was on 07-18-23. Source of Information: Patient Exam Limitations: No Limitations (ROSIO LAMBERT MD) History of Present Illness Date Seen by Provider: Jul 20, 2023 Time Seen by Provider: 05:39 Initial Comments This 57-year-old woman presents to the emergency room via private vehicle with severe abdominal pain, nausea, and vomiting. She reports the symptoms feel very similar to her presentation with bowel obstruction in 2020. Symptoms started yesterday. Her last bowel movement was on the . She has intense cramping and diffuse abdominal tenderness. She also feels bloated. She rates her pain as 10 out of 10. She denies fever or diarrhea. Her prior bowel obstru ction was treated conservatively without surgery but did require NG placement. (ROSIO LAMBERT MD) Allergies and Home Medications Allergies Coded Allergies: Penicillins (Verified Allergy, Unknown, 08/30/21) Sulfa (Sulfonamide Antibiotics) (Verified Allergy, Unknown, 08/30/21) Patient Home Medication List Home Medication List Reviewed: Yes (ROSIO LAMBERT MD) Home Medication List Reviewed: Yes (ROSANGELA FLORENTINO MD) Clindamycin HCl (Clindamycin HCl) 300 Mg Capsule, 300 MG PO Q8H Prescribed by: ROSANGELA FLORENTINO on 02/25/23 1628 Clopidogrel Bisulfate (Clopidogrel) 75 Mg Tablet, 75 MG PO DAILY, (Reported) Entered as Reported by: ALMA GRAY on 10/17/21 120 Escitalopram Oxalate (Escitalopram Oxalate) 10 Mg Tablet, 10 MG PO DAILY, (Reported) Entered as Reported by: ALMA GRAY on 10/17/21 120 Fluticasone Propionate (Flonase Allergy Relief) 9.9 Ml [place].susp, 1 SPRAY NSEACH BID, (Reported) Entered as Reported by: ALMA GRAY on 10/17/21 120 Gabapentin (Gabapentin) 100 Mg Capsule, 100 MG PO TID PRN for PAIN-BREAKTHROUGH, (Reported) Entered as Reported by: ALMA GRAY on 10/17/21 1210 Hydroxyzine HCl (Hydroxyzine HCl) 50 Mg Tablet, 50 MG PO HS PRN for ANXIETY/SLEEP, (Reported) Entered as Reported by: ALMA GRAY on 10/17/21 120 Isosorbide Mononitrate (Isosorbide Mononitrate ER) 30 Mg Tab.er.24h, 30 MG PO DAILY, (Reported) Entered as Reported by: ALMA GRAY on 10/17/21 120 Levothyroxine Sodium (Levothyroxine Sodium) 75 Mcg Tablet, 75 MCG PO DAILY, (Reported) Entered as Reported by: ALMA GRAY on 10/17/21 120 Metoprolol Succinate (Metoprolol Succinate) 50 Mg Tab.er.24h, 50 MG PO DAILY, (Reported) Entered as Reported by: ALMA GRAY on 10/17/21 120 Pantoprazole Sodium (Pantoprazole Sodium) 40 Mg Tablet.dr, 40 MG PO DAILY, (Reported) Entered as Reported by: ALMA GRAY on 10/17/21 120 Rosuvastatin Calcium (Rosuvastatin Calcium) 40 Mg Tablet, 40 MG PO HS, (Reported) Entered as Reported by: ALMA GRAY on 10/17/21 120 Review of Systems Review of Systems Constitutional: no symptoms reported EENTM: No Symptoms Reported Respiratory: No Symptoms Reported Cardiovascular: No Symptoms Reported Gastrointestinal: See HPI Genitourinary: No Symptoms Reported Musculoskeletal: no symptoms reported Skin: no symptoms reported Psychiatric/Neurological: No Symptoms Reported Endocrine: No Symptoms Reported Hematologic/Lymphatic: No Symptoms Reported (ROSIO LAMBERT MD) Past Slwkdtn-Qisrid-Xsqwsj Hx Patient Social History Tobacco Use?: Yes Tobacco type used: Cigarettes Smoking Status: Current Everyday Smoker Substance use?: No Alcohol Use?: No Pt feels they are or have been: No (ROSIO LAMBERT MD) Immunizations Up To Date First/Initial COVID19 Vaccinat: MODERNA Second COVID19 Vaccination Amilcar: MODERNA Third COVID19 Vaccination Date: (ROSIO LAMBERT MD) Past Medical History Surgery/Hospitalization HX: Bowel Obstruction, Cardiac Stent, HTN Surgeries: Yes Coronary Stent, Hysterectomy, Orthopedic Respiratory: Yes COPD Cardiac: Yes Coronary Artery Disease, Hypertension Neurological: No : No Genitourinary: No Gastrointestinal: Yes Obstructive Bowel Musculoskeletal: No Endocrine: No Cancer: No Psychosocial: No (ROSIO LAMBERT MD) Surgery/Hospitalization HX: Hysterectomy, coronary stent, asthma, hypertension, hyperlipidemia, hypothyroid Asthma High Cholesterol, Hypertension Endocrine: Yes Hypothyroidsim (ROSANGELA FLORENTINO MD) Physical Exam Vital Signs Vital Signs - First Documented 07/20/23 05:38 Temp 36.4 Pulse 88 Resp 16 B/P (MAP) 156/90 (112) Pulse Ox 96 O2 Delivery Room Air (ROSANGELA FLORENTINO MD) Vital Signs Capillary Refill : Less Than 3 Seconds (ROSIO LAMBERT MD) Height/Weight/BMI Height: '" Weight: lbs. oz. kg; 25.00 BMI Method: General Appearance: WD/WN, moderate distress HEENT: PERRL/EOMI, normal ENT inspection, other (Oropharynx very dry) Neck: normal inspection Respiratory: lungs clear, normal breath sounds, no respiratory distress Cardiovascular: regular rate, rhythm, no edema, no murmur Gastrointestinal: soft; No distended; tenderness (Diffuse) Extremities: normal inspection, no pedal edema Neurologic/Psychiatric: maintenance manager II-XII nml as tested, no motor/sensory deficits, alert, normal mood/affect, oriented x 3 Skin: normal color, warm/dry (ROSIO LAMBERT MD) Progress/Results/Core Measures Results/Orders Lab Results Laboratory Tests Test 07/20/23 05:39 07/20/23 05:50 Range/Units Urine Color DARK YELLOW Urine Clarity CLEAR Urine pH 6.0 5-9 Urine Specific [place] 1.025 H 1.016-1.022 Urine Protein 2+ H NEGATIVE Urine Glucose (UA) TRACE H NEGATIVE Urine Ketones 1+ H NEGATIVE Urine Nitrite NEGATIVE NEGATIVE Urine Bilirubin 2+ H NEGATIVE Urine Urobilinogen 1.0 < = 1.0 MG/DL Urine Leukocyte Esterase NEGATIVE NEGATIVE Urine RBC (Auto) 2+ H NEGATIVE Urine RBC 10-25 H /HPF Urine WBC NONE /HPF Urine Squamous Epithelial Cells 5-10 /HPF Urine Crystals NONE /LPF Urine Bacteria TRACE /HPF Urine Casts NONE /LPF Urine Mucus MODERATE H /LPF Urine Yeast MODERATE H /HPF Urine Culture Indicated NO White Blood Count 15.3 H 4.3-11.0 10^3/uL Red Blood Count 5.89 H 3.80-5.11 10^6/uL Hemoglobin 17.7 H 11.5-16.0 g/dL Hematocrit 51 35-52 % Mean Corpuscular Volume 87 80-99 fL Mean Corpuscular Hemoglobin 30 25-34 pg Mean Corpuscular Hemoglobin Concent 35 32-36 g/dL Red Cell Distribution Width 15.6 H 10.0-14.5 % Platelet Count 226 130-400 10^3/uL Mean Platelet Volume 9.2 9.0-12.2 fL Neutrophils (%) (Auto) 74 42-75 % Lymphocytes (%) (Auto) 21 12-44 % Monocytes (%) (Auto) 4 0-12 % Eosinophils (%) (Auto) 0 0-10 % Basophils (%) (Auto) 0 0-10 % Neutrophils # (Auto) 11.4 H 1.8-7.8 X 10^3 Lymphocytes # (Auto) 3.2 1.0-4.0 X 10^3 Monocytes # (Auto) 0.7 0.0-1.0 X 10^3 Eosinophils # (Auto) 0.0 0.0-0.3 10^3/uL Basophils # (Auto) 0.1 0.0-0.1 10^3/uL Neutrophils % (Manual) 78 % Lymphocytes % (Manual) 18 % Monocytes % (Manual) 4 % Sodium Level 136 135-145 MMOL/L Potassium Level 3.6 3.6-5.0 MMOL/L Chloride Level 100 98-107 MMOL/L Carbon Dioxide Level 20 L 21-32 MMOL/L Anion Gap 16 H 5-14 MMOL/L Blood Urea Nitrogen 16 7-18 MG/DL Creatinine 0.76 0.60-1.30 MG/DL Estimat Glomerular Filtration Rate 90 BUN/Creatinine Ratio 21 Glucose Level 131 H 70-105 MG/DL Calcium Level 9.9 8.5-10.1 MG/DL Corrected Calcium 8.5-10.1 MG/DL Magnesium Level 2.0 1.6-2.4 MG/DL Total Bilirubin 0.7 0.1-1.0 MG/DL Aspartate Amino Transf (AST/SGOT) 18 5-34 U/L Alanine Aminotransferase (ALT/SGPT) 9 0-55 U/L Alkaline Phosphatase 75 40-136 U/L C-Reactive Protein < 0.30 <0.50 MG/DL Total Protein 8.3 H 6.4-8.2 GM/DL Albumin 4.8 H 3.2-4.5 GM/DL Lipase 21 8-78 U/L (ROSANGELA FLORENTINO MD) My Orders Orders - ROSANGELA FLORENTINO MD Ed Admission (Communication) (07/20/23 08:20) Levofloxacin 750 Mg/150 Ml Iv (Levofloxa (07/20/23 08:21) Ns Iv 1000 Ml (Ns Iv 1000 Ml) (07/20/23 08:21) (ROSANGELA FLORENTINO MD) Medications Given in ED Current Medications Medications Dose Ordered Sig/Carlos Route Start Time Stop Time Status Last Admin Dose Admin Fentanyl Citrate 50 mcg ONCE ONCE IVP 07/20/23 06:00 07/20/23 06:01 DC 07/20/23 06:29 50 MCG Lactated Ringer's 1,000 ml @ 0 mls/hr Q0M ONCE IV 07/20/23 06:00 07/20/23 06:01 DC 07/20/23 06:28 999 MLS/HR Ondansetron HCl 8 mg ONCE ONCE IVP 07/20/23 06:00 07/20/23 06:01 DC 07/20/23 06:29 8 MG (ROSANGELA FLORENTINO MD) Vital Signs/I&O 07/20/23 07/20/23 05:38 08:06 Temp 36.4 36.9 Pulse 88 75 Resp 16 16 B/P (MAP) 156/90 (112) 153/79 Pulse Ox 96 93 O2 Delivery Room Air Room Air (ROSANGELA FLORENTINO MD) Blood Pressure Mean: 112 Progress Progress Note : Time: 06:34 Progress Note Patient was interviewed and examined upon arrival. Symptoms were treated with fentanyl and Zofran. She is being hydrated with a liter of LR. Labs have not been reviewed. CBC was remarkable for leukocytosis of 15.3 and elevated hemoglobin of 17.7. CMP demonstrated no clinically relevant abnormalities. Magnesium and lipase were normal. Urinalysis demonstrated increased specific gravity, 1+ ketones, and 10-[address] of the abdomen and pelvis is pending. (ROSIO LAMBERT MD) Progress Note #1: Time: 07:19 Progress Note I assumed care of the patient at shift change from Dr. Lambert. Patient did have an elevated white blood cell count and her urine was concentrated with a specific gravity of 1.025. On my review of her CT scan of the abdomen pelvis with IV contrast she did appear to have a small bowel obstruction with widespread dilated fluid-filled loops of small bowel. Waiting on radiology over read. Will likely need NG tube and admission for small bowel obstruction. Progress Note #2: Time: 08:14 Progress Note Discussed with Dr. Merino the on-call hospitalist for [facility]. Reviewed patient presentation with abdominal bloating, nausea, vomiting, abdominal pain. Labs showed mild elevation of her white blood cell count and she had signs of terminal ileitis and small bowel obstruction on the CT scan. I did check with Dr. Lucero the on-call surgeon and he was agreeable for consult on the patient. They recommended antibiotics along with bowel rest and possibly an NG if she was having vomiting. At this point she has not had any vomiting in the last 3 ho urs. We will hold off on any NG for now and see how she does with bowel rest and IV fluids. (ROSANGELA FLORENTINO MD) Diagnostic Imaging Diagonstic Imaging: CT Plain Films/CT/US/NM/MRI: abdomen, pelvis Comments [facility], [place] NAME: NEGAR TINEO [facility] REC#: [id number] PT STATUS: REG ER : 1965 PHYSICIAN: ROSIO LAMBERT MD ADMIT DATE: 07/20/23/ER FS Draft Date of Exam:07/20/23 CT ABDOMEN/PELVIS W CT ABDOMEN/PELVIS W TECHNIQUE: Multiple contiguous axial images were obtained through the abdomen and pelvis after administration of intravenous contrast. All CT scans use one or more of the following dose optimizing techniques: automated exposure control, MA and/or KvP adjustment based on patient size and exam type or iterative reconstruction. INDICATION: Severe abdominal pain. COMPARISON: CT abdomen and pelvis of 10/16/2021. FINDINGS: Lower chest: The lung bases are clear. No pericardial or pleural effusion. Peritoneum: A small amount of free fluid is present in the pelvis. Liver and biliary system: The liver is normal. Gallbladder is normal. No biliary duct dilatation. Spleen and Pancreas: Spleen is normal. The pancreas enhances normally without mass lesion or peripancreatic inflammatory changes. Adrenals: Normal. tract: The kidneys enhance normally without suspicious mass or obstruction. A benign 1.1 x 1.1 cm cyst in the upper pole of the right kidney is stable and requires no followup imaging. Urinary bladder is distended without wall thickening. Process is normal in appearance. GI tract: Stomach is decompressed. There is moderate circumferential wall thickening of the terminal ileum extending over a length of approximately 5 cm. This has associated stranding inflammation. There is mild upstream dilation of the small bowel measuring 3 cm which is fluid-filled. No colitis or diverticulitis. Fatty proliferation throughout the submucosa of the small colon is likely sequelae of prior information. The appendix is not seen but there are no secondary features of appendicitis. Vasculature and Lymph nodes: Normal caliber aorta. No abdominal or pelvic lymphadenopathy. Musculoskeletal: No concerning osseous lesion. Interspinous spacer devices are present at L5-S1 and S1-S2. IMPRESSION: 1. Acute terminal ileitis with probable mild stricture resulting in mild upstream dilation of small bowel. However, there is no high-grade obstruction. 2. No perforation or abscess. 3. There is small amount of reactive ascites within the pelvis. Dictated on workstation # [id number] Dict: 07/20/2327 Trans: 07/20/23 0736 CV [id number] Interpreted by: MANOLO MERAZ MD Electronically signed by: Reviewed: Reviewed by Pr (ROSANGELA FLORENTINO MD) Departure Communication (Admissions) Time/Spoke to Admitting Phy: 08:[address] Merino the on-call hospitalist for [facility]. Reviewed patient presentation with abdominal bloating, nausea, vomiting, abdominal pain. Labs showed mild elevation of her white blood cell count and she had signs of terminal ileitis and small bowel obstruction on the CT scan. I did check with Dr. Lucero the on-call surgeon and he was agreeable for consult on the patient. They recommended antibiotics along with bowel rest and possibly an NG if she was having vomiting. At this point she has not had any vomiting in the last 3 hours. We will hold off on any NG for now and see how she does with bowel rest and IV fluids. Time/Spoke to Consulting Phy: 08:[address] Lucero the on-call surgeon. Reviewed patient presentation and findings for mild elevation in the white blood cell count and CT scan findings of terminal ileitis and small bowel obstruction. He recommended antibiotics and bowel rest and NG if she was having vomiting. Will check with Dr. Merino the [facility] hospitalist about admission. (ROSANGELA FLORENTINO MD) Impression Primary Impression: SBO (small bowel obstruction) Additional Impression: Terminal ileitis of small intestine Qualified Codes: K50.012 - Crohn's disease of small intestine with intestinal obstruction Disposition: 30 STILL A PATIENT Condition: Stable Admissions Decision to Admit Reason: Admit from ER (General) Decision to Admit/Date: Jul 20, 2023 Time/Decision to Admit Time: 08:14 (ROSANGELA FLORENTINO MD) Departure-Patient Inst. Referrals: [facility] (PCP/Family) Primary Care Physician ROSIO LAMBERT MD Jul 20, 2023 06:32 ROSANGELA FLORENTINO MD Jul 20, 2023 07:25
--- NOTE | 2023-07-20 07:37 | Diagnostic Imaging Report ---
CT ABDOMEN/PELVIS W TECHNIQUE: Multiple contiguous axial images were obtained through the abdomen and pelvis after administration of intravenous contrast. All CT scans use one or more of the following dose optimizing techniques: automated exposure control, MA and/or KvP adjustment based on patient size and exam type or iterative reconstruction. INDICATION: Severe abdominal pain. COMPARISON: CT abdomen and pelvis of 10/16/2021. FINDINGS: Lower chest: The lung bases are clear. No pericardial or pleural effusion. Peritoneum: A small amount of free fluid is present in the pelvis. Liver and biliary system: The liver is normal. Gallbladder is normal. No biliary duct dilatation. Spleen and Pancreas: Spleen is normal. The pancreas enhances normally without mass lesion or peripancreatic inflammatory changes. Adrenals: Normal. tract: The kidneys enhance normally without suspicious mass or obstruction. A benign 1.1 x 1.1 cm cyst in the upper pole of the right kidney is stable and requires no followup imaging. Urinary bladder is distended without wall thickening. Process is normal in appearance. GI tract: Stomach is decompressed. There is moderate circumferential wall thickening of the terminal ileum extending over a length of approximately 5 cm. This has associated stranding inflammation. There is mild upstream dilation of the small bowel measuring 3 cm which is fluid-filled. No colitis or diverticulitis. Fatty proliferation throughout the submucosa of the small colon is likely sequelae of prior information. The appendix is not seen but there are no secondary features of appendicitis. Vasculature and Lymph nodes: Normal caliber aorta. No abdominal or pelvic lymphadenopathy. Musculoskeletal: No concerning osseous lesion. Interspinous spacer devices are present at L5-S1 and S1-S2. IMPRESSION: 1. Acute terminal ileitis with probable mild stricture resulting in mild upstream dilation of small bowel. However, there is no high-grade obstruction. 2. No perforation or abscess. 3. There is small amount of reactive ascites within the pelvis. Dictated by: Dictated on workstation # [id number]
--- NOTE | 2023-07-20 08:17 | History & Physical-Hospitalist ---
History of Present Illness HPI/Chief Complaint Chief complaint: SBO with ileitis HPI: This is a 57-year-old female who presented to the ER with several days of nausea and vomiting unable to take down any nutrition or fluids. She has had a small bowel obstruction a couple years ago and it felt similar. Imaging scan revealed suspicion for partial small bowel obstruction and ileitis. Patient was placed on IV antibiotics and bowel rest. Pain control and IV fluids will be maintained. Source: patient Exam Limitations: no limitations Date Seen 07/20/23 Time Seen by a Provider: 12:00 Attending Physician [facility] Admitting Physician: Attending Physician: Referring Physician Date of Admission Home Medications & Allergies Home Medications Reviewed patient Home Medication Reconciliation performed by pharmacy medication reconciliations paint technician and/or nursing. Patients Allergies have been reviewed. Allergies Allergies Coded Allergies Penicillins (Verified Allergy, Unknown, 08/30/21) Sulfa (Sulfonamide Antibiotics) (Verified Allergy, Unknown, 08/30/21) Past Shglviy-Xmseex-Tgkwsm Hx Patient Social History Marrital Status: single Employed/Student: unemployed Tobacco Use?: Yes Tobacco type used: Cigarettes Smoking Status: Current Everyday Smoker Substance use?: No Alcohol Use?: No Pt feels they are or have been: No Immunizations Up To Date First/Initial COVID19 Vaccinat: MODERNA Second COVID19 Vaccination Amilcar: MODERNA Current Status Advance Directives: No Communicates: Verbally Primary Language: Latvian Preferred Spoken Language: Latvian Is interpretation needed?: No Past Medical History Surgeries: Coronary Stent, Hysterectomy, Orthopedic Asthma High Cholesterol, Hypertension Obstructive Bowel Hypothyroidsim Review of Systems Constitutional: malaise, weakness Gastrointestinal: abdominal pain, loss of appetite, nausea, vomiting Physical Exam Physical Exam Vital Signs Vital Signs - First Documented 07/20/23 07/20/23 05:38 10:45 Temp 36.4 Pulse 88 Resp 16 B/P (MAP) 156/90 (112) Pulse Ox 96 O2 Delivery Room Air O2 Flow Rate 2.00 Capillary Refill : Less Than 3 Seconds Height, Weight, BMI Height: '" Weight: lbs. oz. kg; 25.00 BMI Method: General Appearance: No Apparent Distress Respiratory: Lungs Clear, Normal Breath Sounds Cardiovascular: Regular Rate, Rhythm, No Edema, No Gallop, No JVD, No Murmur, Normal Peripheral Pulses Neurologic/Psychiatric: Alert, Oriented x3 Results Results/Procedures Labs Laboratory Tests 07/20/23 05:50 Patient resulted labs reviewed. Assessment/Plan Admission Diagnosis Assessment: Small bowel obstruction Acute ileitis Smoker HPI: Consult Dr. Lucero NG tube may be necessary IV antibiotics IV fluids Pain control Admission Status: Observation RIMMA GARCIA DO Jul 20, 2023 08:17
[2023-07-20] MEDS ORDERED: NS IV 1000 ML 1,000 ML IV STA (08:21)
[2023-07-20] MEDS ORDERED: metroNIDAZOLE 500MG/100ML IVPB 100 ML IV STA (09:19)
[2023-07-20] MEDS ORDERED: MELATONIN 3 MG TABLET PO PRN (10:30)
[2023-07-20] MEDS ORDERED: ONDANSETRON 4 MG ORAL DISSOLVE TABLET PO PRN (10:30)
[2023-07-20] MEDS ORDERED: diphenhydrAMINE 25 MG TABLET PO PRN (10:30)
[2023-07-20] MEDS ORDERED: BISACODYL 10 MG SUPPOSITORY PR PRN (10:30)
[2023-07-20] MEDS ORDERED: ACETAMINOPHEN 325 MG TABLET PO PRN (10:30)
[2023-07-20] MEDS ORDERED: ONDANSETRON INJECTION 4 MG/2 ML (SDV) IV PRN (10:30)
[2023-07-20] MEDS ORDERED: ANTACID SUSPENSION 30 ML UDC PO PRN (10:30)
[2023-07-20] MEDS ORDERED: oxyCODONE IMMEDIATE RELEASE 5 MG TABLET PO PRN (10:30)
[2023-07-20] MEDS ORDERED: diphenhydrAMINE INJ 50 MG/ML VIAL IVP PRN (10:30)
[2023-07-20] MEDS ORDERED: LACTULOSE SYRUP 10GM/15ML 30ML UDC PO PRN (10:30)
[2023-07-20 10:45] VITALS: BP 119/70
[2023-07-20] MEDS: metroNIDAZOLE 500MG/100ML IVPB 100 ML IV SCH ×2 (11:11→18:09)
[2023-07-20] MEDS: NS IV 1000 ML 1,000 ML IV SCH ×3 (11:11→21:04)
[2023-07-20] MEDS: ENOXAPARIN 40 MG/0.4 ML SYRINGE SC SCH (11:11)
[2023-07-20 12:00] VITALS: BP 123/78
[2023-07-20] MEDS ORDERED: PANTOPRAZOLE INJECTION 40 MG VIAL IV ONE (12:00)
--- NOTE | 2023-07-20 12:41 | Consultation - Surgery ---
History of Present Illness History of Present Illness Patient Consulted On(jf/time) 07/20/23 12:33 Time Seen by Provider: 11:38 History of Present Illness Surgery asked to consult regarding Partial Small bowel obstruction. HPI per ED: Nurse note - Patient states that she is having stomach cramping and vomiting. Patient reports having a bowel obstruction approximately 2 years ago. She reports this feels similar and is concerned she has a bowel obstruction. Patients symptoms began yesterday. Last bowel movement was on 07-18-23. Per ED provider: This 57-year-old woman presents to the emergency room via private vehicle with severe abdominal pain, nausea, and vomiting. She reports the symptoms feel very similar to her presentation with bowel obstruction in 2020. Symptoms started yesterday. Her last bowel movement was on the . She has intense cramping and diffuse abdominal tenderness. She also feels bloated. She rates her pain as 10 out of 10. She denies fever or diarrhea. Her prior bowel obstruction was treated conservatively without surgery but did require NG placement. When I spoke to pt this morning she stated her pain was a little better but her belly felt distended. She has not had any vomiting since coming to the ER. She reports this is very similar to 2 years ago; at that time she had NGT and then had small bowel follow through. She did not have surgery at that time. She states she has never had a colonoscopy, but "I had that test". No family history of Crohn's or Ulcerative Colitis. Allergies and Home Medications Allergies Coded Allergies: Penicillins (Verified Allergy, Unknown, 08/30/21) Sulfa (Sulfonamide Antibiotics) (Verified Allergy, Unknown, 08/30/21) Patient Home Medication List Home Medication List Reviewed: Yes Clindamycin HCl (Clindamycin HCl) 300 Mg Capsule, 300 MG PO Q8H Prescribed by: ROSANGELA FLORENTINO on 02/25/23 1628 Clopidogrel Bisulfate (Clopidogrel) 75 Mg Tablet, 75 MG PO DAILY, (Reported) Entered as Reported by: ALMA GRAY on 10/17/21 1202 Escitalopram Oxalate (Escitalopram Oxalate) 10 Mg Tablet, 10 MG PO DAILY, (Reported) Entered as Reported by: ALMA GRAY on 10/17/21 1202 Fluticasone Propionate (Flonase Allergy Relief) 9.9 M[address] Hall.susp, 1 SPRAY NSEACH BID, (Reported) Entered as Reported by: ALMA GRAY on 10/17/21 120 Gabapentin (Gabapentin) 100 Mg Capsule, 100 MG PO TID PRN for PAIN-BREAKTHROUGH, (Reported) Entered as Reported by: ALMA GRAY on 10/17/21 1210 Hydroxyzine HCl (Hydroxyzine HCl) 50 Mg Tablet, 50 MG PO HS PRN for ANXIETY/SLEEP, (Reported) Entered as Reported by: ALMA GRAY on 10/17/21 120 Isosorbide Mononitrate (Isosorbide Mononitrate ER) 30 Mg Tab.er.24h, 30 MG PO DAILY, (Reported) Entered as Reported by: ALMA GRAY on 10/17/21 120 Levothyroxine Sodium (Levothyroxine Sodium) 75 Mcg Tablet, 75 MCG PO DAILY, (Reported) Entered as Reported by: ALMA GRAY on 10/17/21 120 Metoprolol Succinate (Metoprolol Succinate) 50 Mg Tab.er.24h, 50 MG PO DAILY, (Reported) Entered as Reported by: ALMA GRAY on 10/17/21 120 Pantoprazole Sodium (Pantoprazole Sodium) 40 Mg Tablet.dr, 40 MG PO DAILY, (Reported) Entered as Reported by: ALMA GRAY on 10/17/21 120 Rosuvastatin Calcium (Rosuvastatin Calcium) 40 Mg Tablet, 40 MG PO HS, (Reported) Entered as Reported by: ALMA GRAY on 10/17/21 120 Past Szyicot-Rktofl-Buwolc Hx Patient Social History Smoking Status: Current Everyday Smoker (has smoked since she was 13) Type Used: Cigarettes Alcohol Use?: No Surgeries History of Surgeries: Yes Surgeries: Coronary Stent, Hysterectomy, Orthopedic Respiratory History of Respiratory Disorde: Yes Respiratory Disorders: Asthma Cardiovascular History of Cardiac Disorders: Yes Cardiac Disorders: High Cholesterol, Hypertension Neurological History of Neurological Disord: No Reproductive System : No Genitourinary History of Genitourinary Disor: No Gastrointestinal History of Gastrointestinal Di: Yes Gastrointestinal Disorders: Obstructive Bowel Musculoskeletal History of Musculoskeletal Dis: No Endocrine History of Endocrine Disorders: Yes Endocrine Disorders: Hypothyroidsim HEENT History of HEENT Disorders: No Cancer History of Cancer: No Psychosocial History of Psychiatric Problem: No Family Medical History Significant Family History: Hypertension, Other Conditions/Hx (brother has diverticulitis) Review of Systems-General Constitutional: No chills, No fever EENTM: No blurred vision, No mouth swelling, No epistaxis Respiratory: No cough, No dyspnea on exertion, No short of breath Cardiovascular: No chest pain, No palpitations Gastrointestinal: abdominal pain; No jaundice, No melena; nausea, vomiting Genitourinary: No dysuria, No frequency, No hematuria Musculoskeletal: joint pain, muscle stiffness Skin: No change in color, No change in hair/nails Psychiatric/Neurological: Denies Anxiety, Denies Depressed, Denies Seizure, Denies Tremors Physical Exam-General Problems Physical Exam Vital Signs Vital Signs - First Documented 07/20/23 07/20/23 05:38 10:45 Temp 36.4 Pulse 88 Resp 16 B/P (MAP) 156/90 (112) Pulse Ox 96 O2 Delivery Room Air O2 Flow Rate 2.00 Capillary Refill : Less Than 3 Seconds General Appearance: WD/WN, no apparent distress, other (looks older than stated age) Eyes: Bilateral Eye PERRL, Bilateral Eye EOMI HEENT: pharynx normal; No scleral icterus (R), No scleral icterus (L) Neck: non-tender, supple Respiratory: lungs clear, normal breath sounds, no respiratory distress, no accessory muscle use Cardiovascular: regular rate, rhythm, no murmur Gastrointestinal: soft, no organomegaly, distended (very mildly), guarding (voluntary), tenderness (diffusely) Rectal: deferred Back: no CVA tenderness, no vertebral tenderness Extremities: no pedal edema, no calf tenderness Neurologic/Psychiatric: cook starch II-XII nml as tested, alert, normal mood/affect, oriented x 3 Skin: normal color, warm/dry Lymphatic: no adenopathy (neck, axilla or groin) Data Review Labs Laboratory Tests 07/20/23 05:39: Urine Color DARK YELLOW, Urine Clarity CLEAR, Urine pH 6.0, Urine Specific Hoffmeister 1.025H, Urine Protein 2+H, Urine Glucose (UA) TRACEH, Urine Ketones 1+H, Urine Nitrite NEGATIVE, Urine Bilirubin 2+H, Urine Urobilinogen 1.0, Urine Leuko cyte Esterase NEGATIVE, Urine RBC (Auto) 2+H, Urine RBC 10-25H, Urine WBC NONE, Urine Squamous Epithelial Cells 5-10, Urine Crystals NONE, Urine Bacteria TRACE, Urine Casts NONE, Urine Mucus MODERATEH, Urine Yeast MODERATEH, Urine Culture Indicated NO 07/20/23 05:50: White Blood Count 15.3H, Red Blood Count 5.89H, Hemoglobin 17.7H, Hematocrit 51, Mean Corpuscular Volume 87, Mean Corpuscular Hemoglobin 30, Mean Corpuscular Hemoglobin Concent 35, Red Cell Distribution Width 15.6H, Platelet Count 226, Mean Platelet Volume 9.2, Neutrophils (%) (Auto) 74, Lymphocytes (%) (Auto) 21, Monocytes (%) (Auto) 4, Eosinophils (%) (Auto) 0, Basophils (%) (Auto) 0, Neutrophils # (Auto) 11.4H, Lymphocytes # (Auto) 3.2, Monocytes # (Auto) 0.7, Eosinophils # (Auto) 0.0, Basophils # (Auto) 0.1, Neutrophils % (Manual) 78, Lymphocytes % (Manual) 18, Monocytes % (Manual) 4, Sodium Level 136, Potassium Level 3.6, Chloride Level 100, Carbon Dioxide Level 20L, Anion Gap 16H, Blood Urea Nitrogen 16, Creatinine 0.76, Estimat Glomerular Filtration Rate 90, BUN/C reatinine Ratio 21, Glucose Level 131H, Calcium Level 9.9, Corrected Calcium , Magnesium Level 2.0, Total Bilirubin 0.7, Aspartate Amino Transf (AST/SGOT) 18, Alanine Aminotransferase (ALT/SGPT) 9, Alkaline Phosphatase 75, C-Reactive P rotein < 0.30, Total Protein 8.3H, Albumin 4.8H, Lipase 21 Radiology Date of Exam:07/20/23 CT ABDOMEN/PELVIS W CT ABDOMEN/PELVIS W TECHNIQUE: Multiple contiguous axial images were obtained through the abdomen and pelvis after administration of intravenous contrast. All CT scans use one or more of the following dose optimizing techniques: automated exposure control, MA and/or KvP adjustment based on patient size and exam type or iterative reconstruction. INDICATION: Severe abdominal pain. COMPARISON: CT abdomen and pelvis of 10/16/2021. FINDINGS: Lower chest: The lung bases are clear. No pericardial or pleural effusion. Peritoneum: A small amount of free fluid is present in the pelvis. Liver and biliary system: The liver is normal. Gallbladder is normal. No biliary duct dilatation. Spleen and Pancreas: Spleen is normal. The pancreas enhances normally without mass lesion or peripancreatic inflammatory changes. Adrenals: Normal. tract: The kidneys enhance normally without suspicious mass or obstruction. A benign 1.1 x 1.1 cm cyst in the upper pole of the right kidney is stable and requires no followup imaging. Urinary bladder is distended without wall thickening. Process is normal in appearance. GI tract: Stomach is decompressed. There is moderate circumferential wall thickening of the terminal ileum extending over a length of approximately 5 cm. This has associated stranding inflammation. There is mild upstream dilation of the small bowel measuring 3 cm which is fluid-filled. No colitis or diverticulitis. Fatty proliferation throughout the submucosa of the small colon is likely sequelae of prior information. The appendix is not seen but there are no secondary features of appendicitis. Vasculature and Lymph nodes: Normal caliber aorta. No abdominal or pelvic lymphadenopathy. Musculoskeletal: No concerning osseous lesion. Interspinous spacer devices are present at L5-S1 and S1-S2. IMPRESSION: 1. Acute terminal ileitis with probable mild stricture resulting in mild upstream dilation of small bowel. However, there is no high-grade obstruction. 2. No perforation or abscess. 3. There is small amount of reactive ascites within the pelvis. 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 I spoke with ED physician and went over the CT films myself. In fact, I went over the CT and SBFT from 10/17. The bowel looked about the same and when the SBFT was done it got to the large intestine in 15 minutes. I think she probably needs a colonoscopy with biopsy of terminal ileum; should be done 6-8 weeks after this episode. Would recommend NPO, IV fluids, IV ABX, pain meds and anti-emetics as needed. Probably will be able to resume diet tomorrow, but monitor her abdominal exam. SANYA KANG DO Jul 20, 2023 12:41
[2023-07-20 15:06] VITALS: BP 123/78
[2023-07-20] MEDS ORDERED: RT-ALBUTEROL SULF 2.5 MG/3 ML PRE-MIX VIAL INH PRN (15:15)
[2023-07-20 16:00] VITALS: BP 137/71
[2023-07-20] MEDS: HYDROmorphone INJECTION 2 MG/ML VIAL IV PRN (16:03)
[2023-07-20] MEDS ORDERED: ALBU8.5H6 IH (17:15)
[2023-07-20] MEDS ORDERED: ALBU2.5V4 IH (17:18)
[2023-07-20] MEDS: DOCUSATE SODIUM 100 MG CAPSULE PO SCH (19:31)
[2023-07-20 20:10] VITALS: BP 125/74
[2023-07-20 23:16] VITALS: BP 114/67
[2023-07-21] MEDS: metroNIDAZOLE 500MG/100ML IVPB 100 ML IV SCH ×3 (02:21→18:48)
[2023-07-21 03:18] VITALS: BP 135/81
[2023-07-21 05:51] LABS: BASOPHILS % (AUTO) 0 % (0-10); EOSINOPHILS # (AUTO) 0.1 10^3/uL (0.0-0.3); EOSINOPHILS % (AUTO) 1 % (0-10); HEMATOCRIT 40 % (35-52); HEMOGLOBIN 13.7 g/dL (11.5-16.0); LYMPHOCYTES # (AUTO) 2.6 10^3/uL (1.0-4.0); LYMPHOCYTES % (AUTO) 32 % (12-44); MEAN CORPUSCULAR HEMOGLOBIN 31 pg (25-34); MEAN CORPUSCULAR HGB CONC 34 g/dL (32-36); MEAN CORPUSCULAR VOLUME 90 fL (80-99); MEAN PLATELET VOLUME 9.1 fL (9.0-12.2); MONOCYTES # (AUTO) 0.5 10^3/uL (0.0-1.0); MONOCYTES % (AUTO) 6 % (0-12); NEUTROPHILS # (AUTO) 4.9 10^3/uL (1.8-7.8); NEUTROPHILS % (AUTO) 60 % (42-75); PLATELET COUNT 151 10^3/uL (130-400); WHITE BLOOD COUNT 8.1 10^3/uL (4.3-11.0)
[2023-07-21] MEDS: NS IV 1000 ML 1,000 ML IV SCH ×2 (05:52→16:21)
[2023-07-21] MEDS: HYDROmorphone INJECTION 2 MG/ML VIAL IV PRN ×2 (05:56→11:59)
[2023-07-21 06:01] LABS: ALBUMIN 3.1 GM/DL (3.2-4.5); POTASSIUM 3.5 MMOL/L (3.6-5.0)
[2023-07-21 06:02] LABS: CALCIUM 7.7 MG/DL (8.5-10.1)
[2023-07-21 06:03] LABS: TOTAL PROTEIN 5.3 GM/DL (6.4-8.2)
[2023-07-21 06:05] LABS: BILIRUBIN,TOTAL 0.5 MG/DL (0.1-1.0)
[2023-07-21 06:07] LABS: CREATININE SERUM 0.75 MG/DL (0.60-1.30)
--- NOTE | 2023-07-21 07:14 | Progress Note - Hospitalist ---
Subjective HPI/CC On Admission Date Seen by Provider: Jul 21, 2023 Time Seen by Provider: 11:00 Chief complaint: SBO with ileitis HPI: This is a 57-year-old female who presented to the ER with several days of nausea and vomiting unable to take down any nutrition or fluids. She has had a small bowel obstruction a couple years ago and it felt similar. Imaging scan revealed suspicion for partial small bowel obstruction and ileitis. Patient was placed on IV antibiotics and bowel rest. Pain control and IV fluids will be maintained. Subjective/Events-last exam Patient doing a lot better Bowel sounds are present Passing gas No more vomiting IV fluids continue We will ambulate Review of Systems General: Fatigue, Malaise Objective Exam Vital Signs Vital Signs Date Time Temp Pulse Resp B/P (MAP) Pulse Ox O2 Delivery O2 Flow Rate FiO2 07/21/23 15:48 36.5 60 20 136/73 (94) 93 Room Air 07/21/23 03:18 0.00 0.00 Capillary Refill : Less Than 3 Seconds General Appearance: No Apparent Distress, WD/WN, Chronically ill Respiratory: Lungs Clear, Normal Breath Sounds Cardiovascular: Regular Rate, Rhythm Neurologic/Psychiatric: Alert, Oriented x3 Results/Procedures Lab Laboratory Tests 07/21/23 05:46 Patient resulted labs reviewed. Assessment/Plan Assessment and Plan Assess & Plan/Chief Complaint Assessment: SBO Acute ileitis placed on Levaquin and Flagyl Smoker History of SBO Plan: Supportive care Pain control Ambulate IV fluid N.p.o. RIMMA GARCIA DO Jul 21, 2023 07:14
[2023-07-21 08:38] VITALS: BP 113/71
[2023-07-21] MEDS: DOCUSATE SODIUM 100 MG CAPSULE PO SCH ×2 (08:39→20:22)
[2023-07-21] MEDS: PANTOPRAZOLE INJECTION 40 MG VIAL IV SCH (08:39)
[2023-07-21] MEDS: ENOXAPARIN 40 MG/0.4 ML SYRINGE SC SCH (11:49)
[2023-07-21 12:38] VITALS: BP 132/76
--- NOTE | 2023-07-21 14:17 | Progress Note - Surgery ---
Subjective Time Seen by a Provider: 12:23 Subjective/Events-last exam Pt seen and examined, states she is feeling better today and almost no pain. She is hungry and wants food. States she is passing gas. Review of Systems General: No Chills, No Night Sweats Pulmonary: No Dyspnea, No Cough Cardiovascular: No: Chest Pain, Palpitations Gastrointestinal: Abdominal Pain (very minimal and intermittent); No: Nausea, Vomiting Objective Exam Vital Signs Date Time Temp Pulse Resp B/P (MAP) Pulse Ox O2 Delivery O2 Flow Rate FiO2 07/21/23 12:38 36.2 65 18 132/76 (94) 94 Room Air 07/21/23 08:38 36.9 59 18 113/71 (85) 93 Room Air 07/21/23 08:00 93 Room Air 07/21/23 03:18 37.1 78 18 135/81 (99) 93 Room Air 0.00 0.00 07/20/23 23:16 37.6 69 18 114/67 (83) 93 Room Air 0.00 0.00 07/20/23 20:10 37.6 67 18 125/74 (91) 92 Room Air 07/20/23 19:30 Room Air 07/20/23 16:00 37.5 63 17 137/71 (93) 92 Room Air 07/20/23 15:06 36.9 68 98 I & O 07/21/23 07:00 Intake Total 4350 ml Output Total 850 ml Balance 3500 ml Capillary Refill : Less Than 3 Seconds General Appearance: No Apparent Distress, WD/WN Respiratory: Lungs Clear, Normal Breath Sounds, No Accessory Muscle Use, No Respiratory Distress Cardiovascular: Regular Rate, Rhythm, No Murmur Gastrointestinal: soft, no organomegaly; No distended, No guarding; tenderness (deep palpation midline and RLQ) Neurologic/Psychiatric: Alert, Oriented x3 Results Lab Laboratory Tests 07/21/23 05:46: White Blood Count 8.1, Red Blood Count 4.48, Hemoglobin 13.7#, Hematocrit 40, Mean Corpuscular Volume 90, Mean Corpuscular Hemoglobin 31, Mean Corpuscular Hemoglobin Concent 34, Red Cell Distribution Width 15.7H, Platelet Count 151, Mean Platelet Volume 9.1, Immature Granulocyte % (Auto) 0, Neutrophils (%) (Auto) 60, Lymphocytes (%) (Auto) 32, Monocytes (%) (Auto) 6, Eosinophils (%) (Auto) 1, Basophils (%) (Auto) 0, Neutrophils # (Auto) 4.9, Lymphocytes # (Auto) 2.6, Monocytes # (Auto) 0.5, Eosinophils # (Auto) 0.1, Basophils # (Auto) 0.0, Immature Granulocyte # (Auto) 0.0, Sodium Level 136, Potassium Level 3.5L, Chloride Level 109H, Carbon Dioxide Level 21, Anion Gap 6, Blood Urea Nitrogen 10, Creatinine 0.75, Estimat Glomerular Filtration Rate 92, BUN/Creatinine Ratio 13, Glucose Level 79, Calcium Level 7.7L, Corrected Calcium 8.4L, Total Bilirubin 0.5, Aspartate Amino Transf (AST/SGOT) 16, Alanine Aminotransferase (ALT/SGPT) 8, Alkaline Phosphatase 41, Total Protein 5.3L, Albumin 3.1L Assessment/Plan Assessment/Plan Assessment/Plan Partial Small Bowel Obstruction - most likely secondary to Terminal Ileitis COPD CAD, HTN 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 Would continue IV fluids, IV ABX, pain meds and anti-emetics as needed. Will start clears. She needs a colonoscopy and probably EGD as outpt. SANYA KANG DO Jul 21, 2023 14:17
[2023-07-21 15:48] VITALS: BP 136/73
[2023-07-21 19:46] VITALS: BP 138/81
[2023-07-22] VITALS: BP 128/74
[2023-07-22] MEDS: NS IV 1000 ML 1,000 ML IV SCH ×2 (01:28→10:40)
[2023-07-22] MEDS: metroNIDAZOLE 500MG/100ML IVPB 100 ML IV SCH ×2 (03:20→10:39)
[2023-07-22 04:00] VITALS: BP 134/70
[2023-07-22 06:03] LABS: BASOPHILS % (AUTO) 1 % (0-10); HEMOGLOBIN 12.4 g/dL (11.5-16.0)
[2023-07-22 06:05] LABS: EOSINOPHILS # (AUTO) 0.1 10^3/uL (0.0-0.3); EOSINOPHILS % (AUTO) 2 % (0-10); HEMATOCRIT 36 % (35-52); LYMPHOCYTES % (AUTO) 35 % (12-44); MEAN CORPUSCULAR HEMOGLOBIN 31 pg (25-34); MEAN CORPUSCULAR HGB CONC 35 g/dL (32-36); MEAN CORPUSCULAR VOLUME 89 fL (80-99); MEAN PLATELET VOLUME 9.3 fL (9.0-12.2); MONOCYTES # (AUTO) 0.4 10^3/uL (0.0-1.0); MONOCYTES % (AUTO) 8 % (0-12); NEUTROPHILS # (AUTO) 3.1 10^3/uL (1.8-7.8); NEUTROPHILS % (AUTO) 55 % (42-75); PLATELET COUNT 137 10^3/uL (130-400); WHITE BLOOD COUNT 5.6 10^3/uL (4.3-11.0)
[2023-07-22 06:18] LABS: ALBUMIN 3.1 GM/DL (3.2-4.5); POTASSIUM 3.1 MMOL/L (3.6-5.0)
[2023-07-22 06:19] LABS: CALCIUM 7.9 MG/DL (8.5-10.1)
[2023-07-22 06:21] LABS: TOTAL PROTEIN 5.3 GM/DL (6.4-8.2)
[2023-07-22 06:22] LABS: BILIRUBIN,TOTAL 0.4 MG/DL (0.1-1.0)
[2023-07-22 06:24] LABS: CREATININE SERUM 0.7 MG/DL (0.60-1.30)
--- NOTE | 2023-07-22 07:08 | Progress Note - Surgery ---
GENESIS WALLER 07/22/23 0708: Subjective Date Seen by a Provider: Jul 22, 2023 Time Seen by a Provider: 07:02 Subjective/Events-last exam Pt says she is feeling pretty good. Pt denies any abd pain. Pt has been passing gas. Pt states she has had brown, non-bloody diarrhea a couple of times since . Pt is on a clears diet and is tolerating it well: no trouble swallowing, no associated pain, no reflux. Pt states she has not had any COPD exacerbations in the last 24 hours and she is doing fine in that regard. Pt denies N/V. Review of Systems General: No Chills, No Night Sweats HEENT: No Head Aches, No Visual Changes Pulmonary: No Dyspnea, No Cough; Other (COPD) Cardiovascular: No: Chest Pain, Palpitations Gastrointestinal: Diarrhea (non-bloody, brown, couple times); No: Nausea, Vomiting, Abdominal Pain, Melena, Hematochezia Genitourinary: No Dysuria, No Hematuria Neurological: No: Weakness, Numbness Objective Exam Vital Signs Date Time Temp Pulse Resp B/P (MAP) Pulse Ox O2 Delivery O2 Flow Rate FiO2 07/22/23 04:00 36.5 63 18 134/70 (91) 96 Room Air 07/22/23 00:00 36.2 59 20 128/74 (92) 94 Room Air 07/21/23 20:00 Room Air 07/21/23 19:46 36.6 55 20 138/81 (100) 94 Room Air 07/21/23 15:48 36.5 60 20 136/73 (94) 93 Room Air 07/21/23 12:38 36.2 65 18 132/76 (94) 94 Room Air 07/21/23 08:38 36.9 59 18 113/71 (85) 93 Room Air 07/21/23 08:00 93 Room Air I & O 07/22/23 07:00 Intake Total 1330 ml Output Total 400 ml Balance 930 ml Capillary Refill : Less Than 3 Seconds General Appearance: No Apparent Distress, Chronically ill Respiratory: Lungs Clear, Normal Breath Sounds, Other (COPD) Cardiovascular: Regular Rate, Rhythm (HR 63); No No Murmur Peripheral Pulses: 2+ Carotid (R), 2+ Carotid (L), 2+ Dorsalis Pedis (R), 2+ Left Dors-Pedis (L), 2+ Radial Pulses (R), 2+ Radial Pulses (L) Gastrointestinal: soft, no organomegaly; No distended, No guarding, No tenderness (no tenderness today to light or deep palpation) Neurologic/Psychiatric: Alert, Oriented x3 Skin: Normal Color, Warm/Dry Results Lab Laboratory Tests 07/22/23 05:23: White Blood Count 5.6, Red Blood Count 4.03, Hemoglobin 12.4, Hematocrit 36, Mean Corpuscular Volume 89, Mean Corpuscular Hemoglobin 31, Mean Corpuscular Hemoglobin Concent 35, Red Cell Distribution Width 15.4H, Platelet Count 137, Mean Platelet Volume 9.3, Immature Granulocyte % (Auto) 0, Neutrophils (%) (Auto) 55, Lymphocytes (%) (Auto) 35, Monocytes (%) (Auto) 8, Eosinophils (%) (Auto) 2, Basophils (%) (Auto) 1, Neutrophils # (Auto) 3.1, Lymphocytes # (Auto) 2.0, Monocytes # (Auto) 0.4, Eosinophils # (Auto) 0.1, Basophils # (Auto) 0.0, Immature Granulocyte # (Auto) 0.0, Percent Immature Platelet Fraction 1.6, Sodium Level 138, Potassium Level 3.1L, Chloride Level 110H, Carbon Dioxide Level 21, Anion Gap 7, Blood Urea Nitrogen 5L, Creatinine 0.70, Estimat Glomerular Filtration Rate 100, BUN/Creatinine Ratio 7, Glucose Level 79, Calcium Level 7.9L, Corrected Calcium 8.6, Total Bilirubin 0.4, Aspartate Amino Transf (AST/SGOT) 17, Alanine Aminotransferase (ALT/SGPT) 8, Alkaline Phosphatase 40, Total Protein 5.3L, Albumin 3.1L Assessment/Plan Assessment/Plan Assessment/Plan Partial Small Bowel Obstruction - most likely secondary to Terminal Ileitis COPD CAD HTN (controlled - 134/70 last reading, all normal readings currently seen going back to 07/21 at noon) 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 She is improving and is without abd pain now at rest or on PE and is having diarrhea. Would continue IV fluids, IV ABX, pain meds and anti-emetics as needed. She is tolerating clears but should advance diet slowly. She needs a colonoscopy and probably EGD as outpt. KLEVER LUCERO DO 07/22/23 1447: Subjective Time Seen by a Provider: 12:18 Subjective/Events-last exam Pt seen and examined, states she is doing better, hungry and wants to go home. Review of Systems HEENT: No Head Aches, No Visual Changes Pulmonary: No Dyspnea, No Cough Cardiovascular: No: Chest Pain, Palpitations Gastrointestinal: Abdominal Pain, Diarrhea (non-bloody, brown, couple times); No: Nausea, Vomiting Objective Exam General Appearance: No Apparent Distress, Chronically ill Respiratory: Lungs Clear, Normal Breath Sounds, No Accessory Muscle Use, No Respiratory Distress, Other (COPD) Cardiovascular: Regular Rate, Rhythm (HR 63), No Murmur Gastrointestinal: non tender, soft, no organomegaly; No distended, No guarding Neurologic/Psychiatric: Alert, Oriented x3 Assessment/Plan Assessment/Plan Assessment/Plan Partial Small Bowel Obstruction - most likely secondary to Terminal Ileitis COPD CAD HTN (controlled - 134/70 last reading, all normal readings currently seen going back to 07/21 at noon) 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 She is improving and is without abd pain now at rest or on PE and is having diarrhea. Would try soft diet and if she tolerates it can go home today. She needs a colonoscopy and probably EGD as outpt. Supervisory-Addendum Brief Verification & Attestation Participated in pt care: history, MDM, physical Personally performed: exam, history, MDM, supervision of care Care discussed with: Medical Student Procedures: n/a Verification and Attestation of Medical Student E/M Service A medical student performed and documented this service. I then reviewed and verified all information documented by the medical student and made modifications to such information, when appropriate. I personally performed a physical exam, medical decision making and then discussed any differences between the notes and made revisions as necessary to create one note. Klever Lucero , 07/22/23 , 14:46 GENESIS WALLER Jul 22, 2023 07:08 KLEVER LUCERO DO Jul 22, 2023 14:47
[2023-07-22 08:12] VITALS: BP 157/97
[2023-07-22] MEDS: DOCUSATE SODIUM 100 MG CAPSULE PO SCH (08:19)
[2023-07-22] MEDS: PANTOPRAZOLE INJECTION 40 MG VIAL IV SCH (08:19)
[2023-07-22] MEDS ORDERED: ACET-2267 PO (09:04)
[2023-07-22] MEDS ORDERED: GABA100C PO (09:14)
[2023-07-22 11:42] VITALS: BP 150/86
[2023-07-22] MEDS: ENOXAPARIN 40 MG/0.4 ML SYRINGE SC SCH (11:47)
--- NOTE | 2023-07-22 14:25 | Discharge Summary ---
Diagnosis/Chief Complaint Date of Admission Jul 20, 2023 at 10:10 Date of Discharge 07/22/23 Admission Diagnosis Admission Diagnosis SBO Acute Ileitis Smoker h/o SBO Discharge Diagnosis See Above Discharge Summary-Simple/Stand Consultations Dr Lucero: General Surgery Discharge Physical Examination Allergies: Coded Allergies: Penicillins (Verified Allergy, Unknown, 08/30/21) Sulfa (Sulfonamide Antibiotics) (Verified Allergy, Unknown, 08/30/21) Vitals & I&Os Vital Sign - Last 12Hours Date Time Temp Pulse Resp B/P (MAP) Pulse Ox O2 Delivery O2 Flow Rate FiO2 07/22/23 11:42 36.3 63 18 150/86 (107) 93 Nasal Cannula 2.00 Intake and Output 07/22/23 00:00 Intake Total 880 ml Output Total 400 ml Balance 480 ml General Appearance: Alert, Oriented X3, No Acute Distress Respiratory: Clear to Auscultation, Normal Air Movement Cardiovascular: Regular Rate, No Murmurs Abdominal: Normal Bowel Sounds, Soft, Other (mild epigastric ttp) Extremities: No Edema, No Tenderness/Swelling Neuro: Normal Speech Hospital Course See final discharge diagnosis. Radiology Reviewed Date of Exam:07/20/23 CT ABDOMEN/PELVIS W CT ABDOMEN/PELVIS W TECHNIQUE: Multiple contiguous axial images were obtained through the abdomen and pelvis after administration of intravenous contrast. All CT scans use one or more of the following dose optimizing techniques: automated exposure control, MA and/or KvP adjustment based on patient size and exam type or iterative reconstruction. INDICATION: Severe abdominal pain. COMPARISON: CT abdomen and pelvis of 10/16/2021. FINDINGS: Lower chest: The lung bases are clear. No pericardial or pleural effusion. Peritoneum: A small amount of free fluid is present in the pelvis. Liver and biliary system: The liver is normal. Gallbladder is normal. No biliary duct dilatation. Spleen and Pancreas: Spleen is normal. The pancreas enhances normally without mass lesion or peripancreatic inflammatory changes. Adrenals: Normal. tract: The kidneys enhance normally without suspicious mass or obstruction. A benign 1.1 x 1.1 cm cyst in the upper pole of the right kidney is stable and requires no followup imaging. Urinary bladder is distended without wall thickening. Process is normal in appearance. GI tract: Stomach is decompressed. There is moderate circumferential wall thickening of the terminal ileum extending over a length of approximately 5 cm. This has associated stranding inflammation. There is mild upstream dilation of the small bowel measuring 3 cm which is fluid-filled. No colitis or diverticulitis. Fatty proliferation throughout the submucosa of the small colon is likely sequelae of prior information. The appendix is not seen but there are no secondary features of appendicitis. Vasculature and Lymph nodes: Normal caliber aorta. No abdominal or pelvic lymphadenopathy. Musculoskeletal: No concerning osseous lesion. Interspinous spacer devices are present at L5-S1 and S1-S2. IMPRESSION: 1. Acute terminal ileitis with probable mild stricture resulting in mild upstream dilation of small bowel. However, there is no high-grade obstruction. 2. No perforation or abscess. 3. There is small amount of reactive ascites within the pelvis. Dictated by: Dictated on workstation # [id number] Dict: 07/20/2327 Trans: 07/20/23 1033 CV [id number] Interpreted by: MANOLO MERAZ MD Electronically signed by: MANOLO MERAZ MD 07/20/23 1033 Discharge Condition at discharge Stable Instructions to patient/family Please see electronic discharge instructions given to patient. Discharge Medications Reviewed and agree with Discharge Medication list on patient's Discharge Instruction sheet HOLLY HECTOR MD Jul 22, 2023 14:25
[2023-07-22] MEDS ORDERED: METR-145 PO (14:29)
[2023-07-22] MEDS ORDERED: LEVO750T PO (14:29)
--- NOTE | 2023-07-22 14:30 | Discharge Summary ---
Discharge [facility] Discharge Medications New, Converted or Re-Newed RX: Transmitted to Pharmacy New Medications: Levofloxacin (Levofloxacin) 750 Mg Tablet 750 MG PO DAILY, #5 TAB Metronidazole (Metronidazole) 500 Mg Tablet 500 MG PO BID, #10 TAB Continued Medications: Acetaminophen (Tylenol Extra Strength) 500 Mg Tablet 500 MG PO Q8H PRN for PAIN-MILD (1-4), TAB Albuterol Sulfate (Albuterol Sulfate) 2.5 Mg/3 Ml (0.083 %) Vial.neb 1 VIAL IH Q6H PRN for SHORTNESS OF BREATH Clopidogrel Bisulfate (Clopidogrel) 75 Mg Tablet 75 MG PO DAILY, TAB Escitalopram Oxalate (Escitalopram Oxalate) 10 Mg Tablet 10 MG PO DAILY, TAB Hydroxyzine HCl (Hydroxyzine HCl) 50 Mg Tablet 50 MG PO HS PRN for ANXIETY/SLEEP, TAB Isosorbide Mononitrate (Isosorbide Mononitrate ER) 30 Mg Tab.er.24h 30 MG PO DAILY, TAB Levothyroxine Sodium (Levothyroxine Sodium) 75 Mcg Tablet 75 MCG PO DAILY, TAB Metoprolol Succinate (Metoprolol Succinate) 50 Mg Tab.er.24h 50 MG PO DAILY, TAB Pantoprazole Sodium (Pantoprazole Sodium) 40 Mg Tablet.dr 40 MG PO HS, TAB Rosuvastatin Calcium (Rosuvastatin Calcium) 40 Mg Tablet 40 MG PO DAILY, TAB Discontinued Medications: Gabapentin (Gabapentin) 100 Mg Capsule 200 MG PO HS PRN for PAIN-BREAKTHROUGH, CAP TAKES 2 (100MG) CAPS Gabapentin (Neurontin) 100 Mg Capsule 100 MG PO HS PRN for PAIN-BREAKTHROUGH, CAP Patient Instructions Goal/Follow Up Appt: 1 week with PCP Allison Ellison Activity & Diet Discharge Diet: Soft Diet Activity as Tolerated: Yes HOLLY HECTOR MD Jul 22, 2023 14:30
== END 2023-07-22 15:00 | disposition home or self-care (01) ==
LOC: EDUNIT# 05:36 → ER FS 05:37 → 4TH 10:10 → UNDOADMOB 10:10 → 4TH 10:20 → UNDODISOB 07-22 15:00
PROVIDERS: ADMIT Internal Medicine; ATTEND Family Medicine
DX: K56.600 Partial intestinal obstruction, unspecified as to cause (principal); K52.9 Noninfective gastroenteritis and colitis, unspecified; J44.9 Chronic obstructive pulmonary disease, unspecified; I25.10 Atherosclerotic heart disease of native coronary artery without angina pectoris; I10 Essential (primary) hypertension; I26.99 Other pulmonary embolism without acute cor pulmonale; F17.210 Nicotine dependence, cigarettes, uncomplicated; Z79.899 Other long term (current) drug therapy
CPT/HCPCS: 36415; 74177; 80053 ×3; 81000; 83690; 83735; 85007; 85025 ×2; 85027; 86141; 94760; 96361; 96366 ×2; 96372 ×3; 96374; 96375 ×2; 96376 ×3; 99284; G0378; Q9967

== ENCOUNTER 2023-08-21 05:50 | Outpatient (CLI) | payer MEDICARE ==
[~2023-08-21] VITALS: Ht 162.6 cm; Wt 69.0 kg
[~2023-08-21 05:50] MED LIST changes: +ACET-2267 PO; +ALBU2.5V4 IH; +ALBU8.5H6 IH; +GABA100C PO; +LEVO750T PO; +METR-145 PO
[2023-08-26] MEDS ORDERED: LEVO100C4 PO (10:21)
[2023-08-26] MEDS ORDERED: BUDE10.7 IH (10:26)
== END 2023-08-26 10:33 | disposition home or self-care (01) ==
LOC: PREOP 05:50
PROVIDERS: ATTEND Surgery
DX: Z01.818 Encounter for other preprocedural examination (principal)

== ENCOUNTER 2023-09-03 09:16 | Day surgery (SDC) | payer MEDICARE ==
[~2023-09-03] VITALS: Ht 162.6 cm; Wt 69.0 kg
[~2023-09-03 09:16] MED LIST changes: +BUDE10.7 IH; +LEVO100C4 PO
[2023-09-03] MEDS ORDERED: LACTATED RINGERS 1,000 ML 1,000 ML IV STA (09:18)
[2023-09-03 09:31] VITALS: BP 138/76
--- NOTE | 2023-09-03 09:33 | Progress Note-Pre Operative ---
Pre-Operative Progress Note Date H&P Reviewed: Sep 03, 2023 Time H&P Reviewed: 09:32 History & Physical: H&P Reviewed, Patient Examed, No changes noted Pre-Operative Diagnosis: Screening colonoscopy KAREN KEANE DO Sep 03, 2023 09:33
[2023-09-03 10:40] VITALS: BP 116/65
--- NOTE | 2023-09-03 10:41 | Progress Note-Post Operative ---
Post-Operative Progess Note Surgeon (s)/Cyber Workforce Developer And Manager (s) Surgeon KAREN KEANE DO Cyber Workforce Developer And Manager: n/a Pre-Operative Diagnosis Screening colonoscopy Post-Operative Diagnosis Rectal polyp Procedure & Operative Findings Date of Procedure 09/03/23 Procedure Performed/Findings colonoscopy with cold biopsy polypectomy Anesthesia Type per AEROSPACE QUALITY ENGINEER Estimated Blood Loss Estimated blood loss (mL): scant Specimens/Packing Specimens Removed Rectal polyp x1 KAREN KEANE DO Sep 03, 2023 10:40
--- NOTE | 2023-09-03 10:42 | Discharge Inst-Simple/Standard ---
Discharge Inst-Standard Patient Instructions/Follow Up Plan of Care/Instructions/FU: 2 Weeks [place] Activity as Tolerated: Yes Discharge Diet: Regular Diet KAREN KEANE DO Sep 03, 2023 10:42
[2023-09-03 10:45] VITALS: BP 138/63
[2023-09-03 10:59] VITALS: BP 138/63
[2023-09-03 11:15] VITALS: BP 138/63
--- NOTE | 2023-09-03 13:56 | Anesthesia-General Post-Op ---
MAC Patient Condition Mental Status/LOC: Same as Preop Cardiovascular: Satisfactory Nausea/Vomiting: Absent Respiratory: Satisfactory Pain: Controlled Complications: Absent Post Op Complications Complications None Follow Up Care/Instructions Patient Instructions None needed. Anesthesiology Discharge Order Discharge Order Patient is doing well, no complaints, stable vital signs, no apparent adverse anesthesia problems. No complications reported per nursing. DEUCE CHAMPION CRNA Sep 03, 2023 13:56
--- NOTE | 2023-09-03 19:50 | OPERATIVE REPORT ---
DATE OF SERVICE: 09/03/2023 PREOPERATIVE DIAGNOSIS: Screening colonoscopy. POSTOPERATIVE DIAGNOSIS: Rectal polyps. SURGEON: Karen Guevara DO ANESTHESIA: Per SHOW WORKER. PROCEDURES: Colonoscopy with cold biopsy polypectomy. INDICATIONS: The patient is a 58-year-old female, needing screening colonoscopy. She understands risks and benefits of procedure and wished to proceed. Consent was signed in chart. DESCRIPTION OF PROCEDURE: The patient was taken to endoscopy suite, placed in left lateral recumbent position. Timeout was performed. A digital rectal exam was performed. No palpable polyps, masses or ulcerations. Scope was inserted in the rectum, advanced all the way to the cecum with minimal difficulty. Prep was adequate. Scope was slowly retracted back. No polyps, masses or ulcerations in the cecum, ascending, transverse, descending and sigmoid colon. Once in the rectum, small polyp was present, which cold biopsy polypectomy was performed. Scope was retroflexed noting no other pathology. Scope was returned to its normal position, slowly withdrawn until completely removed. The patient tolerated the procedure well without complications, taken to recovery room in stable condition. RECOMMENDATIONS: The patient will have repeat colonoscopy in 5 years. Any issues before that, she will be seen at that time. She will follow up in 2 weeks to discuss pathology results. Job ID: [id number] DocumentID: [id number] Dictated Date: 09/03/2023 10:43:01 Qc Chemist Date: 09/03/2023 19:49:00 Dictated By: KAREN GUEVARA DO
== END 2023-09-03 11:18 | disposition home or self-care (01) ==
LOC: ENDO 09:16
PROVIDERS: ATTEND Surgery
DX: Z12.11 Encounter for screening for malignant neoplasm of colon (principal); K62.1 Rectal polyp; F17.210 Nicotine dependence, cigarettes, uncomplicated; Z79.02 Long term (current) use of antithrombotics/antiplatelets
CPT/HCPCS: 88305